=== PATIENT | female | born 1950 | race Caucasian/White ===

== ENCOUNTER 2017-12-06 20:26 | Observation (INO) | payer MEDICARE, SELFPAY ==
[2017-12-06 20:26] VITALS: BP 140/92; PULSE 139; RESP 29; TEMP 37.2; O2SAT 99; BMI 20.9
--- NOTE | 2017-12-06 20:36 | XR_ITS ---
XR chest portable HISTORY: ITS.REASON: chest pressure, arrythmia ORDERING PHYSICIAN: Newton Fernandes MD PATIENT AGE: 67 years COMPARISON: None available FINDINGS: The cardiomediastinal silhouette and pulmonary vascularity are within normal limits. Surgical clips are present over the left lower chest. Calcified nodes are present in the right hilum. No lobar consolidation or collapse. IMPRESSION: As above, no acute finding
[2017-12-06 20:56] LABS: Basophils % 0.1 % (0.1-2.0); Eosinophils # 0.1 K/mm3 (0.0-0.4); Eosinophils % 1.3 % (0.1-12.0); Hematocrit 35.7 % (37.0-47.0); Hemoglobin 12.7 g/dL (12.2-16.2); Lymphocytes # 1.9 K/mm3 (0.7-4.5); Lymphocytes % 21.1 K/mm3 (10-50); Mean Corpuscular HGB Conc 35.6 g/dL (31.8-35.4); Mean Corpuscular Hemoglobin 30.6 pg (27.0-31.2); Mean Corpuscular Volume 85.9 fl (81-99); Mean Platelet Volume 8.4 fl (7.4-10.4); Monocytes # 0.6 K/mm3 (0.1-1.0); Monocytes % 6.9 % (1.7-9.3); Neutrophils # 6.2 K/mm3 (1.8-7.8); Neutrophils % 70.5 % (37.0-80.0); Platelet Count 266 K/mm3 (142-424); Red Blood Count 4.16 M/mm3 (4.20-5.40); Red Cell Distribution Width 13.2 % (11.5-17.5); White Blood Count 8.7 K/mm3 (4.8-10.8)
[2017-12-06 21:15] VITALS: BP 121/79; PULSE 91; RESP 23; TEMP 36.7; O2SAT 99
[2017-12-06 21:16] LABS: Alanine Aminotransferase 25 U/L (12-78); Albumin Level 3.9 gm/dL (3.4-5.0); Albumin/Globulin Ratio 1.6 (1.1-1.8); Alkaline Phosphatase 59 U/L (46-116); Anion Gap 12.5 mEq/L (5-15); Aspartate Amino Transferase 9 U/L (15-37); Bilirubin,Total 0.5 mg/dL (0.2-1.0); Blood Urea Nitrogen 11 mg/dL (7-18); Calcium 8.9 mg/dL (8.5-10.1); Carbon Dioxide 27 mmol/L (21.0-32.0); Chloride 105 mmol/L (98-107); Creatine Kinase 55 U/L (26-192); Creatinine Clearance Estimated 50 mL/min (0-300); Creatinine,Serum 1.01 mg/dL (0.55-1.02); Estimated Glomerular Filt Rate 55 ml/min (>60); Free T4 (Free Thyroxine) 1.27 ng/dl (0.76-1.46); GFR (African American) 66 ML/MIN (>60); Globulin 2.5 gm/dl (1.3-3.2); Glucose 130 mg/dL (74-106); Potassium 3.5 mmoL/L (3.5-5.1); Sodium 141 mmol/L (136-145); Thyroid Stimulating Hormone 3.34 uIU/ml (0.358-3.740); Total Protein,Serum 6.4 gm/dL (6.4-8.2); Troponin I < 0.02 ng/ml (0.00-0.06)
[2017-12-06 21:18] LABS: Lactic Acid 2.1 mmol/L (0.4-2.0)
--- NOTE | 2017-12-06 21:18 | HMH.EDCP ---
ED Disposition Clinical Impression: Palpitation Chest pain Qualifiers: Chest pain type: precordial pain Qualified Code(s): R07.2 - Precordial pain Disposition: Admitted as Observation Condition on Discharge: Good Referrals: Newton Fernandes MD [Primary Care Provider] - - Critical Care Critical Care Time: No Attestation: On 12/06/17, the high probability of a clinically significant, sudden or life threatening deterioration of the following system(s) required my full and direct attention, intervention and personal management. The time I documented below is in addition to time spent performing reported procedures but includes the following listed in this critical care notation. Medical Decision Making - Medical Records Medical records reviewed: Yes: I reviewed the patient's medical records. Vital Signs: 12/06/17 20:26 12/06/17 21:15 Temperature 98.9 F 98.1 F Temperature Source Oral Oral Pulse Rate [Apical] 139 H 91 H Respiratory Rate 29 H 23 Blood Pressure [Right Arm] 140/92 121/79 Blood Pressure Mean [Right Arm] 108 93 Blood Pressure Source [Right Arm] Automatic Cuff Automatic Cuff Blood Pressure Position [Right Arm] Supine Sitting 02 Sat by Pulse Oximetry 99 99 Oxygen Delivery Method Nasal Cannula Nasal Cannula Oxygen Flow Rate (LPM) 3 3 - Lab Data Lab results reviewed: Yes: I reviewed the patient's lab results. Lab Results 12/06/17 20:46: WBC 8.7, RBC 4.16 L, Hgb 12.7, Hct 35.7 L, MCV 85.9, MCH 30.6, MCHC 35.6 H, RDW 13.2, Plt Count 266, MPV 8.4, Neut % (Auto) 70.5, Lymph % (Auto) 21.1, [place] % (Auto) 6.9, Eos % (Auto) 1.3, Baso % (Auto) 0.1, Neut # (Auto) 6.2, Lymph # (Auto) 1.9, [place] # (Auto) 0.6, Eos # (Auto) 0.1, Baso # (Auto) 0.0 12/06/17 20:46: Sodium 141, Potassium 3.5, Chloride 105, Carbon Dioxide 27, Anion Gap 12.5, BUN 11, Creatinine 1.01, Estimated Creat Clear 50, Estimated GFR 55 L, Est GFR ( Amer) 66, Glucose 130 H, Calcium 8.9, Total Bilirubin 0.5, AST 9 L, ALT 25, Alkaline Phosphatase 59, Total Creatine Kinase 55, CK-MB (CK-2) 0.8, CK-MB (CK-2) Rel Index 1.5, Troponin I < 0.02, Total Protein 6.4, Albumin 3.9, Globulin 2.5, Albumin/Globulin Ratio 1.6, TSH 3.34, Free T4 1.27 12/06/17 20:46: Lactic Acid 2.1 H 12/06/17 20:46: B-Natriuretic Peptide 31 12/06/17 21:20: Urine Color Yellow, Urine Appearance Clear, Urine pH 8.0, Ur Specific [place] 1.015, Urine Protein Negative, Urine Glucose (UA) Negative, Urine Ketones Negative, Urine Blood Negative, Urine Nitrate Negative, Urine Bilirubin Negative, Urine Urobilinogen 0.2, Ur Leukocyte Esterase Negative, Urine RBC None, Urine WBC Occasional, Ur Squamous Epith Cells Occasional, Urine Bacteria None Result diagrams: 12/06/17 20:46 12/06/17 20:46 Orders (Tests/Meds): ORDERS Category Date Time Status XR chest portable Stat Exams 12/06/17 20:36 Taken fingerstick glucose [POC Glucose,Bedside] Stat Lab 12/06/17 20:36 Ordered Blood Culture Stat Micro 12/06/17 20:54 Received ECG Request by /Bteh Stat Y 12/06/17 20:36 Ordered - Radiology Data #1 Image(s): Chest Image Reviewed: Yes I reviewed the patient's radiology image Preliminary Findings: Normal/NAD - ECG Data Tracing #1 I reviewed this ECG and interpreted as documented below: Arrhythmias present: sinus tach Ischemic changes: non-specific ST-T wave changes Tracing #2 I reviewed this ECG and interpreted as documented below: Normal Sinus Rhythm: Yes Ischemic changes: non-specific ST-T wave changes - Physician Consults Physician Consulted: usha Reason -: Admission - Doug Inquiry Pt receiving controlled substance: No Chest Pain HPI - General Chief Complaint: Chest Pain Stated Complaint: tachycardia Time Seen by Provider: 12/06/17 21:18 Mode of Arrival: EMS Source of Information: Patient, Spouse, EMS, Medical Record Limitations: No Limitations Description of Symptoms (Recalled from ER Triage Doc. by RN): been sick with a sinus infe
[2017-12-06 21:25] LABS: Microscopic, Urine URINE MICROSCOPIC (MICROSCOPIC)
[2017-12-06 21:27] LABS: Appearance,Urine CLEAR (Clear); Bilirubin,Urine Negative (Negative); Blood, Urine Negative (Negative); Color,Urine YELLOW (Yellow); Glucose,Urine (UA) Negative (Negative); Ketones,Urine Negative (Negative); Leukocyte Esterase,Urine Negative (Negative); Nitrate,Urine Negative (Negative); Protein,Urine Negative (Negative); Specific Gravity, Urine 1.015 (1.005-1.030); Urobilinogen,Urine 0.2 EU/dl (0.2)
--- NOTE | 2017-12-06 21:29 | ED_ITS ---
ED Disposition Clinical Impression: Palpitation Chest pain Qualifiers: Chest pain type: precordial pain Qualified Code(s): R07.2 - Precordial pain Disposition: Admitted as Observation Condition on Discharge: Good Referrals: Newton Fernandes MD [Primary Care Provider] - - Critical Care Critical Care Time: No Attestation: On 12/06/17, the high probability of a clinically significant, sudden or life threatening deterioration of the following system(s) required my full and direct attention, intervention and personal management. The time I documented below is in addition to time spent performing reported procedures but includes the following listed in this critical care notation. Medical Decision Making - Medical Records Medical records reviewed: Yes: I reviewed the patient's medical records. Vital Signs: 12/06/17 20:26 12/06/17 21:15 Temperature 98.9 F 98.1 F Temperature Source Oral Oral Pulse Rate [Apical] 139 H 91 H Respiratory Rate 29 H 23 Blood Pressure [Right Arm] 140/92 121/79 Blood Pressure Mean [Right Arm] 108 93 Blood Pressure Source [Right Arm] Automatic Cuff Automatic Cuff Blood Pressure Position [Right Arm] Supine Sitting 02 Sat by Pulse Oximetry 99 99 Oxygen Delivery Method Nasal Cannula Nasal Cannula Oxygen Flow Rate (LPM) 3 3 - Lab Data Lab results reviewed: Yes: I reviewed the patient's lab results. Lab Results 12/06/17 20:46: WBC 8.7, RBC 4.16 L, Hgb 12.7, Hct 35.7 L, MCV 85.9, MCH 30.6, MCHC 35.6 H, RDW 13.2, Plt Count 266, MPV 8.4, Neut % (Auto) 70.5, Lymph % (Auto ) 21.1, [place] % (Auto) 6.9, Eos % (Auto) 1.3, Baso % (Auto) 0.1, Neut # (Auto) 6.2, Lymph # (Auto) 1.9, [place] # (Auto) 0.6, Eos # (Auto) 0.1, Baso # (Auto) 0.0 12/06/17 20:46: Sodium 141, Potassium 3.5, Chloride 105, Carbon Dioxide 27, Anion Gap 12.5, BUN 11, Creatinine 1.01, Estimated Creat Clear 50, Estimated GFR 55 L, Est GFR ( Amer) 66, Glucose 130 H, Calcium 8.9, Total Bilirubin 0.5, AST 9 L, ALT 25, Alkaline Phosphatase 59, Total Creatine Kinase 55, CK-MB (CK-2) 0.8, CK-MB (CK-2) Rel Index 1.5, Troponin I < 0.02, Total Protein 6.4, Albumin 3.9, Globulin 2.5, Albumin/Globulin Ratio 1.6, TSH 3.34, Free T4 1.27 12/06/17 20:46: Lactic Acid 2.1 H 12/06/17 20:46: B-Natriuretic Peptide 31 12/06/17 21:20: Urine Color Yellow, Urine Appearance Clear, Urine pH 8.0, Ur Specific [place] 1.015, Urine Protein Negative, Urine Glucose (UA) Negative, Urine Ketones Negative, Urine Blood Negative, Urine Nitrate Negative, Urine Bilirubin Negative, Urine Urobilinogen 0.2, Ur Leukocyte Esterase Negative, Urine RBC None, Urine WBC Occasional, Ur Squamous Epith Cells Occasional, Urine Bacteria None Result diagrams: 12/06/17 20:46 12/06/17 20:46 Orders (Tests/Meds): ORDERS Category Date Time Status XR chest portable Stat Exams 12/06/17 20:36 Taken fingerstick glucose [POC Glucose,Bedside] Stat Lab 12/06/17 20:36 Ordered Blood Culture Stat Micro 12/06/17 20:54 Received ECG Request by /Beth Stat Y 12/06/17 20:36 Ordered - Radiology Data #1 Image(s): Chest Image Reviewed: Yes I reviewed the patient's radiology image Preliminary Findings: Normal/NAD - ECG Data Tracing #1 I reviewed this ECG and interpreted as documented below: Arrhythmias present: sinus tach Ischemic changes: non-specific ST-T wave changes Tracing #2 I reviewed this ECG and interpreted as documented be
[2017-12-06 21:48] LABS: Squamous Epithelial Cell,Urine Occasional #/hpf (0-5); WBC,Urine Occasional #/hpf (0-3)
[2017-12-06 21:50] LABS: CKMB Relative Index 1.5 U/L (0-4.0); Creatine Kinase MB 0.8 mg/ml (0.0-3.6)
[2017-12-06 22:11] VITALS: BP 144/87; PULSE 86; RESP 18; TEMP 37.1; O2SAT 100
--- NOTE | 2017-12-06 22:11 | PC.NURSE ---
Dr Osorio spoke to Dr Fernandes regarding admission. Dr Fernandes agreed to admit.
[2017-12-06 22:26] VITALS: BP 151/93; PULSE 87; RESP 18; TEMP 36.9; O2SAT 100
[2017-12-06 22:45] VITALS: BMI 20.8
[2017-12-06 23:31] VITALS: O2SAT 97
[2017-12-07 00:54] LABS: Reflex Lactic Add Lactic Reflex
--- NOTE | 2017-12-07 00:57 | PC.NURSE ---
PT ASLEEP, STABLE. NO C/O CHEST PAIN AT THIS TIME. REPORT TO ONCOMING NURSE.
[2017-12-07 01:21] LABS: Lactic Acid Follow Up (RFLX 1) 0.8 (0.4-2.0)
[2017-12-07 03:54] VITALS: BP 152/82; PULSE 96; RESP 20; TEMP 36.8; O2SAT 100
[2017-12-07 04:00] VITALS: PULSE 90
--- NOTE | 2017-12-07 05:01 | PC.NURSE ---
AT 0403 DR. MUSA PAGED. AT [phone] MD RESPONDED TO PAGE. MD NOTIFIED OF C/O SOA PT STATING I JUST FEEL LIKE IT IS HARD TO CATCH MY BREATH. AND CHEST TIGHTNESS. PT ALSO REPORTS I FEEL LIKE I AM ABOUT TO HAVE ANOTHER PANIC ATTACK. COMPLAINT WAS MADE AT AT 0353 TO RN. VITAL SIGNS OBTAINED AND RECORDED AT 0354 BP: 152/82, HR: 96, RR: 20, TEMP: 98.2, O2SAT: 100% ON 2LNC. NSR NOTED PER SUPERVISOR REINFORCED STEEL PLACING AT THIS TIME. VERIFIED AND REPEATED ORDERS WITH DR. MUSA: 0.5MG ATIVAN IV ONE TIME ONLY.
--- NOTE | 2017-12-07 06:18 | PC.NURSE ---
PAGED DR. MUSA AT [phone]. RESPONDED TO PAGE AT [phone]. MD NOTIFIED OF PT FEELS A SLIGHT BETTER BUT NOT ENOUGH TO REST COMFORTABLY. STILL HAS MILD CHEST TIGHTNESS, AND FEELING A LITTLE SOA. NSR/SINUS TACH (HR OF 100-113) ON SIPHON OPERATOR. VERIFIED AND REPEATED ORDER WITH DR. MUSA: ONE TIME DOSE OF 0.5MG IV ATIVAN.
--- NOTE | 2017-12-07 06:30 | PC.NURSE ---
ON REASSESSMENT OF ATIVAN, PT STATES I FEEL SO MUCH BETTER. IT DID HELP. THANK YOU.
--- NOTE | 2017-12-07 06:52 | CA_ITS ---
PROCEDURE: 2-D M-mode and color Doppler study INDICATIONS FOR THE TEST: Chest pain X COPD Heart Murmur Tobacco Smoking Palpitations Fatigue Syncope Edema Hypertension Diabetes Mellitus Rheumatic Fever SOBXDOE Obesity Hyperlipidemia Family History HD Additional History PATIENT INFORMATION HEIGHT: 65 WEIGHT:129 GENDER: Female B/P:121/79 2-D/M-MODE INTERPRETATION: 2-D MEASUREMENTS OBSERVED VALUES IN CMS Right Ventricular Dimension (RVDd) 1.8 Interventricular Septum (Thickness)(IVsd) .6 Left Ventricular Internal Dimensions(LVIDd) 5.6 Left Ventricular Posterior Wall (Thickness)(LVPWd) .9 Aortic Root 2.9 Aortic Cusp Separation 2.0 Left Atrial Dimensions (LAD) 2.5 2D 1. Left atrium is normal size, left ventricle is normal size, there is no concentric left ventricular hypertrophy, visually estimated ejection fraction 55% with no obvious regional wall motion abnormality. 2. The right atrium and right ventricle are normal size and contractility. 3. The aortic valve is minimally thickened and fibrosed. 4. The mitral and tricuspid valve are grossly normal. 5. The pulmonic valve is poorly visualized. 6. No significant pericardial effusion noted. DOPPLER INTERROGATION: Doppler interrogation of the aortic, mitral and tricuspid valvular presence of mild mitral and tricuspid regurgitation, tricuspid and jet velocity is insufficient for calculation of the right ventricular systolic pressure, diastolic parameters are inconclusive. CONCLUSION: 1. Normal left ventricular size, preserved left ventricular systolic function, visually estimated ejection fraction 55% with no obvious regional wall motion abnormality. Diastolic parameters are inconclusive. 2. Mild mitral and tricuspid regurgitation 3. No significant pericardial effusion noted.
[2017-12-07 07:05] LABS: Anion Gap 9.3 mEq/L (5-15); Blood Urea Nitrogen 10 mg/dL (7-18); Carbon Dioxide 30 mmol/L (21.0-32.0); Chloride 107 mmol/L (98-107); Chol/HDL Ratio 3.1 (1-3.5); Cholesterol 196 mg/dL (140-200); Creatinine Clearance Estimated 50 mL/min (0-300); Estimated Glomerular Filt Rate 83 ml/min (>60); GFR (African American) 101 ML/MIN (>60); Glucose 97 mg/dL (74-106); HDL Cholesterol 64 mg/dL (29-89); LDL Cholesterol 110 mg/dL (0-130); Potassium 3.3 mmoL/L (3.5-5.1); Sodium 143 mmol/L (136-145); Triglycerides 110 mg/dL (30-200); VLDL Cholesterol 22 mg/dL (0-40)
[2017-12-07 07:07] LABS: Troponin I < 0.02 ng/ml (0.00-0.06)
[2017-12-07 07:46] VITALS: BP 148/94; PULSE 107; RESP 20; TEMP 36.8; O2SAT 97
--- NOTE | 2017-12-07 07:48 | HMH.PHAVTE ---
[facility] Pharmacy VTE Monitoring - Patient Demographics Allergies/Adverse Reactions: Patient Allergies No Known Allergies Allergy (Verified 12/07/17 04:12) Height: 1.68 m Weight: 58.542 kg Patient Problems: Current Active Problems Chest pain (Acute) Palpitation (Acute) - VTE Risk Labs: VTE Related Lab Results Hgb 12.7 g/dL (12.2-16.2) 12/06/17 20:46 Hct 35.7 % (37.0-47.0) L 12/06/17 20:46 Plt Count 266 K/mm3 (142-424) 12/06/17 20:46 BUN 10 mg/dL (7-18) 12/07/17 06:15 Creatinine 0.70 mg/dL (0.55-1.02) D 12/07/17 06:15 Estimated Creat Clear 50 mL/min (0-300) 12/07/17 06:15 Was VTE Risk Assessment Performed: Yes VTE Score: 1 VTE Risk Level: Very Low Risk - Prophylaxis Types of VTE Prophylaxis: TEDS Knee High
[2017-12-07 08:00] VITALS: PULSE 110
--- NOTE | 2017-12-07 08:27 | HMH.CNCARD ---
History of Present Illness Consult date: 12/07/17 Requesting physician: Newton Fernandes Consult reason: shortness of breath Chief complaint: Shortness of breath Additional Medical History:: 1. Family history of early heart disease in her mother who of a heart attack at age 59 2. History of depression 3. History of reflux History of present illness: 67-year-old white female with recent upper respiratory infection for a couple of weeks with [id number] treatment including Addie-D and Xanax presented with increasing shortness of breath. Patient was brought in by ambulance after stopping at the size maker station yesterday and reportedly having a rapid irregular heartbeat. Review of the rhythm strips from the EMS show motion artifact but with a appreciable sinus tachycardia at about 130-150 bpm. EKGs here in the hospital continued to show sinus tachycardia with motion artifact for which the machine has read atrial fibrillation. Patient was given 3 sublingual nitroglycerin in the ambulance without relief of symptoms. She given aspirin in the emergency department with gradual resolution of symptoms. Patient denies any chest pain overnight. He denies any previous cardiac history, she denies a history of hypertension, hyperlipidemia, diabetes mellitus or tobacco use. Cardiology consulted for further evaluation. [facility] History Medical History: Denies:: Cancer, Diabetes Mellitus Type 1, Diabetes Mellitus Type 2, MRSA Laterality Cases: Right: Other, Bilateral: Tonsillectomy Other Surgeries: Yes: Hysterectomy-Total Amputation: No Fractures: Yes (right arm/wrist) - *Social History Educational Level: Completed High School Smoking Status: Never smoker Alcohol Intake: never Occupational Status: retired Housing: house Household Members: significant other - Psychiatric History Expresses thoughts of harming self/others: None Suicide Plan Description: No Plan Meds Home Medications Medication Instructions Recorded Confirmed Type Venlafaxine HCl [Effexor XR 75mg 225 mg PO DAILY 12/06/17 12/06/17 History capsule] Ziprasidone HCl [Ziprasidone HCl] 60 mg PO HS 12/06/17 12/06/17 History Zolpidem Tartrate [Ambien 5mg 5 mg PO HS 12/06/17 12/06/17 History tablet] Omeprazole [Omeprazole 40mg 40 mg PO DAILY 12/07/17 12/07/17 History Capsule] Allergies Allergy/AdvReac Type Severity Reaction Status Date / Time No Known Allergies Allergy Verified 12/07/17 04:12 Review of Systems - *Cardiovascular Reports chest pain, Reports shortness of breath - *Respiratory Reports shortness of breath - *Gastrointestinal Denies abdominal pain, Denies vomiting - *Genitourinary Denies blood in urine - *Musculoskeletal Denies joint pain - *Neurologic Denies seizure-like activity Exam Vital signs and Labs for Last 24 Hours: Temp Pulse Resp BP Pulse Ox 98.2 F 107 H 20 148/94 97 12/07/17 07:46 12/07/17 07:46 12/07/17 07:46 12/07/17 07:46 12/07/17 07:46 Laboratory Results - last 24 hr 12/07/17 00:50: Lactic Acid Fup @ 4Hr 0.8 12/07/17 06:15: Troponin I < 0.02 12/07/17 06:15: Sodium 143, Potassium 3.3 L, Chloride 107, Carbon Dioxide 30, Anion Gap 9.3, BUN 10, Creatinine 0.70 D, Estimated Creat Clear 50, Estimated GFR 83, Est GFR ( Amer) 101 D, Glucose 97 D, Triglycerides 110, Cholesterol 196, LDL Cholesterol 110, VLDL Cholesterol 22, HDL Cholesterol 64, Cholesterol/HDL Ratio 3.1 I & O for Last 24 hours: Intake & Output 12/04/17 12/05/17 12/06/17 12/07/17 11:59 11:59 11:59 11:59 Intake Total 213 / 713 Balance 213 / 713 Weight 129 lb 1 oz - *Routine Neck Exam Present: supple. Absent: JVD, carotid bruit - *Routine Respiratory Exam Present: CTA bilaterally. Absent: rhonchi, wheezes - *Routine Cardiovascular Exam Present: RRR. Absent: murmur, gallop, rubs - *Routine Extremities Exam Absent: edema, calf tenderness - *Routine Neurologica
--- NOTE | 2017-12-07 08:35 | HMH.HPDC ---
<Marie Adams - Last Filed: 12/07/17 17:30> General - General Admission date: 12/06/17 Discharge date: 12/07/17 *Admission Date: 12/06/17 *Chief complaint: shortness of breath and palpitations *History of present illness: Ms Grant is a 67 year old female with a history of anxiety/depression, and recent treatment for a sinus infection who presented to [facility] ER via EMS after experiencing palpitations, shortness of breath, and anxiety. She states also that her chest felt full. She denies cough, fever, nausea and vomiting. She states she was diaphoretic. She tried to cut herself down but was unable to do so. Thus she called EMS. EMS did have to stop at their station due to her shortness of breath. She was given 3 nitroglycerin without change of her symptoms. Monitor at that time showed a sinus tach with artifact. Upon arrival to the emergency room she was given an aspirin. Her symptoms gradually improved. Monitor at that time also showed sinus tach. She was admitted for further evaluation and treatment and a cardiology consult. Patient states that she did not sleep all night. The Ativan to help her and she was to relax more. States she has been taking Jesse D twice daily for the past month as well as Nasonex. She started taking Mucinex D or DM. She has been having shoulder and neck discomfort for which she saw a chiropractor yesterday. The treatment did not help. [facility] History Medical History: Reports:: Cancer Denies:: Atrial Fibrillation, Chronic Obstructive Pulmonary Disease (COPD), Diabetes Mellitus Type 1, Diabetes Mellitus Type 2, MRSA, Seizures Other Medical History: Denies: Arthritis, Hypothyroidism Comment: overactive bladder; depression; anxiety; GERD. Fibromyalgia; insomnia Laterality Cases: Left: Lumpectomy (for cancer), Right: Other, Bilateral: Tonsillectomy Other Surgeries: Yes: Hysterectomy-Total Amputation: No Fractures: Yes (right arm/wrist) Comment: ORIF of left ankle after Fx - *Social History Educational Level: Completed High School Smoking Status: Never smoker Alcohol Intake: never Occupational Status: retired Housing: house Household Members: significant other - Psychiatric History Expresses thoughts of harming self/others: None Suicide Plan Description: No Plan Pschychiatric History:: Reports:: Anxiety, Depression *Family Hx:: Heart Attack Review of Systems - Constitutional Reports body ache(s), Reports excessive sweating, Reports fever(s), Denies chills, Denies headache(s) - ENT Reports sinus pressure, Denies ear pain, Denies headache(s), Denies sore throat - *Cardiovascular Reports chest pain, Reports shortness of breath, Reports rapid, pounding, or irregular heartbeat, Reports fast heart rate, Denies generalized swelling, Denies foot swelling - *Respiratory Reports shortness of breath, Denies cough - *Gastrointestinal Denies abdominal pain, Denies bloating, Denies constipation, Denies heartburn, Denies vomiting blood, Denies black, tarry stools, Denies nausea, Denies vomiting - *Genitourinary Comments: Voids too much - *Musculoskeletal Reports joint pain (Neck and shoulders) - *Neurologic Denies behavioral changes, Denies confusion, Denies dizziness, Denies headache(s), Denies seizure-like activity - Psychiatric Reports anxiety, Reports depression, Reports panic attacks, Denies confusion Exam Vital signs and Labs for Last 24 Hours: Temp Pulse Resp BP Pulse Ox 98.2 F 107 H 20 148/94 97 12/07/17 07:46 12/07/17 07:46 12/07/17 07:46 12/07/17 07:46 12/07/17 07:46 Laboratory Results - last 24 hr 12/07/17 00:50: Lactic Acid Fup @ 4Hr 0.8 12/07/17 06:15: Troponin I < 0.02 12/07/17 06:15: Sodium 143, Potassium 3.3 L, Chloride 107, Carbon Dioxide 30, Anion Gap 9.3, BUN 10, Creatinine 0.70 D, Estimated Creat Clear 50, Estimated GFR 83, Est GFR ( Amer) 101 D, Glucose 97 D, Triglycerides 110, Cholesterol 196, LDL Cholesterol 110, VLDL Cholesterol 22, HDL
--- NOTE | 2017-12-07 08:43 | P.HPDS_ITS ---
<Marie Adams - Last Filed: 12/07/17 17:30> General - General Admission date: 12/06/17 Discharge date: 12/07/17 *Admission Date: 12/06/17 *Chief complaint: shortness of breath and palpitations *History of present illness: Ms Grant is a 67 year old female with a history of anxiety/depression, and recent treatment for a sinus infection who presented to [facility] ER via EMS after experiencing palpitations, shortness of breath, and anxiety. She states also that her chest felt full. She denies cough, fever, nausea and vomiting. She states she was diaphoretic. She tried to cut herself down but was unable to do so. Thus she called EMS. EMS did have to stop at their station due to her shortness of breath. She was given 3 nitroglycerin without change of her symptoms. Monitor at that time showed a sinus tach with artifact. Upon arrival to the emergency room she was given an aspirin. Her symptoms gradually improved. Monitor at that time also showed sinus tach. She was admitted for further evaluation and treatment and a cardiology consult. Patient states that she did not sleep all night. The Ativan to help her and she was to relax more. States she has been taking Jesse D twice daily for the past month as well as Nasonex. She started taking Mucinex D or DM. She has been having shoulder and neck discomfort for which she saw a chiropractor yesterday. The treatment did not help. [facility] History Medical History: Reports:: Cancer Denies:: Atrial Fibrillation, Chronic Obstructive Pulmonary Disease (COPD), Diabetes Mellitus Type 1, Diabetes Mellitus Type 2, MRSA, Seizures Other Medical History: Denies: Arthritis, Hypothyroidism Comment: overactive bladder; depression; anxiety; GERD. Fibromyalgia; insomnia Laterality Cases: Left: Lumpectomy (for cancer), Right: Other, Bilateral: Tonsillectomy Other Surgeries: Yes: Hysterectomy-Total Amputation: No Fractures: Yes (right arm/wrist) Comment: ORIF of left ankle after Fx - *Social History Educational Level: Completed High School Smoking Status: Never smoker Alcohol Intake: never Occupational Status: retired Housing: house Household Members: significant other - Psychiatric History Expresses thoughts of harming self/others: None Suicide Plan Description: No Plan Pschychiatric History:: Reports:: Anxiety, Depression *Family Hx:: Heart Attack Review of Systems - Constitutional Reports body ache(s), Reports excessive sweating, Reports fever(s), Denies chills, Denies headache(s) - ENT Reports sinus pressure, Denies ear pain, Denies headache(s), Denies sore throat - *Cardiovascular Reports chest pain, Reports shortness of breath, Reports rapid, pounding, or irregular heartbeat, Reports fast heart rate, Denies generalized swelling, Denies foot swelling - *Respiratory Reports shortness of breath, Denies cough - *Gastrointestinal Denies abdominal pain, Denies bloating, Denies constipation, Denies heartburn, Denies vomiting blood, Denies black, tarry stools, Denies nausea, Denies vomiting - *Genitourinary Comments: Voids too much - *Musculoskeletal Reports joint pain (Neck and shoulders) - *Neurologic Denies behavioral changes, Denies confusion, Denies dizziness, Denies headache(s ), Denies seizure-like activity - Psychiatric Reports anxiety, Reports depression, Reports panic attacks, Denies confusion Exam Vital signs and Labs for Last 24 Hours: Temp Pulse Resp BP Pulse Ox 98.2 F 107 H 20 148/94 97 12/07/17 07:46 12/07/17 07:46 12/07/17 07:46 12/07/17 07:
--- NOTE | 2017-12-07 12:38 | P.DS_ITS ---
General - General Admission date: 12/06/17 HPI HPI: Ms Grant is a 67 year old female with a history of anxiety/depression, and recent treatment for a sinus infection who presented to [facility] ER via EMS after experiencing palpitations, shortness of breath, and anxiety. She states also that her chest felt full. She denies cough, fever, nausea and vomiting. She states she was diaphoretic. She tried to cut herself down but was unable to do so. Thus she called EMS. EMS did have to stop at their station due to her shortness of breath. She was given 3 nitroglycerin without change of her symptoms. Monitor at that time showed a sinus tach with artifact. Upon arrival to the emergency room she was given an aspirin. Her symptoms gradually improved. Monitor at that time also showed sinus tach. She was admitted for further evaluation and treatment and a cardiology consult. Patient states that she did not sleep all night. The Ativan to help her and she was to relax more. States she has been taking Jesse D twice daily for the past month as well as Nasonex. She started taking Mucinex D or DM. She has been having shoulder and neck discomfort for which she saw a chiropractor yesterday. The treatment did not help. Objective Vital signs: Temp Pulse Resp BP Pulse Ox 98.2 F 110 H 20 148/94 97 12/07/17 07:46 12/07/17 08:00 12/07/17 07:46 12/07/17 07:46 12/07/17 07:46 Results Labs on day of discharge: Labs from last 24 hours 12/07/17 12/07/17 12/07/17 06:15 06:15 00:50 Sodium 143 Potassium 3.3 L Chloride 107 Carbon Dioxide 30 Anion Gap 9.3 BUN 10 Creatinine 0.70 D Estimated Creat Clear 50 Estimated GFR 83 Est GFR ( Amer) 101 D Glucose 97 D Lactic Acid Fup @ 4Hr 0.8 Troponin I < 0.02 Triglycerides 110 Cholesterol 196 LDL Cholesterol 110 VLDL Cholesterol 22 HDL Cholesterol 64 Cholesterol/HDL Ratio 3.1 Discharge Plan - Patient Discharge Instructions ACTIVITY: Continue current activity DIET: continue same diet - Follow up Plan Follow up with: Newton Fernandes MD [Primary Care Provider] - 12/09/17 Unknown provider or service follow up:: Dr. Dinh in 2 weeks Disposition: Home, Self-Group Home Medications: Home Medications Medication Instructions Recorded Confirmed Type Venlafaxine HCl [Effexor XR 75mg 225 mg PO DAILY 12/06/17 12/06/17 History capsule] Ziprasidone HCl [Ziprasidone HCl] 60 mg PO HS 12/06/17 12/06/17 History Zolpidem Tartrate [Ambien 5mg 5 mg PO HS 12/06/17 12/06/17 History tablet] Omeprazole [Omeprazole 40mg 40 mg PO DAILY 12/07/17 12/07/17 History Capsule] Prescriptions/Medication Reconciliation: New Nebivolol HCl [Bystolic] 5 mg PO DAILY #30 tab LORazepam [Ativan 0.5mg tablet] 0.5 mg PO TIDP PRN #24 tab PRN Reason: Anxiety Continue Zolpidem Tartrate [Ambien 5mg tablet] 5 mg PO HS Venlafaxine HCl [Effexor XR 75mg capsule] 225 mg PO DAILY Ziprasidone HCl [Ziprasidone HCl] 60 mg PO HS Omeprazole [Omeprazole 40mg Capsule] 40 mg PO DAILY
--- NOTE | 2017-12-30 09:48 | P.CONS_ITS ---
History of Present Illness Consult date: 12/07/17 Requesting physician: Newton Fernandes Consult reason: shortness of breath Chief complaint: Shortness of breath Additional Medical History:: 1. Family history of early heart disease in her mother who of a heart attack at age 59 2. History of depression 3. History of reflux History of present illness: 67-year-old white female with recent upper respiratory infection for a couple of weeks with [id number] treatment including Addie-D and Xanax presented with increasing shortness of breath. Patient was brought in by ambulance after stopping at the club manager station yesterday and reportedly having a rapid irregular heartbeat. Review of the rhythm strips from the EMS show motion artifact but with a appreciable sinus tachycardia at about 130-150 bpm. EKGs here in the hospital continued to show sinus tachycardia with motion artifact for which the machine has read atrial fibrillation. Patient was given 3 sublingual nitroglycerin in the ambulance without relief of symptoms. She given aspirin in the emergency department with gradual resolution of symptoms. Patient denies any chest pain overnight. He denies any previous cardiac history , she denies a history of hypertension, hyperlipidemia, diabetes mellitus or tobacco use. Cardiology consulted for further evaluation. [facility] History Medical History: Denies:: Cancer, Diabetes Mellitus Type 1, Diabetes Mellitus Type 2, MRSA Laterality Cases: Right: Other, Bilateral: Tonsillectomy Other Surgeries: Yes: Hysterectomy-Total Amputation: No Fractures: Yes (right arm/wrist) - *Social History Educational Level: Completed High School Smoking Status: Never smoker Alcohol Intake: never Occupational Status: retired Housing: house Household Members: significant other - Psychiatric History Expresses thoughts of harming self/others: None Suicide Plan Description: No Plan Meds Home Medications Medication Instructions Recorded Confirmed Type Venlafaxine HCl [Effexor XR 75mg 225 mg PO DAILY 12/06/17 12/06/17 History capsule] Ziprasidone HCl [Ziprasidone HCl] 60 mg PO HS 12/06/17 12/06/17 History Zolpidem Tartrate [Ambien 5mg 5 mg PO HS 12/06/17 12/06/17 History tablet] Omeprazole [Omeprazole 40mg 40 mg PO DAILY 12/07/17 12/07/17 History Capsule] Allergies Allergy/AdvReac Type Severity Reaction Status Date / Time No Known Allergies Allergy Verified 12/07/17 04:12 Review of Systems - *Cardiovascular Reports chest pain, Reports shortness of breath - *Respiratory Reports shortness of breath - *Gastrointestinal Denies abdominal pain, Denies vomiting - *Genitourinary Denies blood in urine - *Musculoskeletal Denies joint pain - *Neurologic Denies seizure-like activity Exam Vital signs and Labs for Last 24 Hours: Temp Pulse Resp BP Pulse Ox 98.2 F 107 H 20 148/94 97 12/07/17 07:46 12/07/17 07:46 12/07/17 07:46 12/07/17 07:46 12/07/17 07:46 Laboratory Results - last 24 hr 12/07/17 00:50: Lactic Acid Fup @ 4Hr 0.8 12/07/17 06:15: Troponin I < 0.02 12/07/17 06:15: Sodium 143, Potassium 3.3 L, Chloride 107, Carbon Dioxide 30, Anion Gap 9.3, BUN 10, Creatinine 0.70 D, Estimated Creat Clear 50, Estimated GFR 83, Est GFR ( Amer) 101 D, Glucose 97 D, Triglycerides 110, Cholesterol 196, LDL Cholesterol 110, VLDL Cholesterol 22, HDL Cholesterol 64, Cho
== END 2017-12-07 12:50 | disposition home or self-care (01) ==
LOC: ER 20:36 → 2ND 22:11
PROVIDERS: Admitting Provider Family Medicine; Emergency Provider Emergency Medicine; Family Provider Family Medicine; PCP Family Medicine; Visit Provider Family Medicine
DX: R07.9 Chest pain, unspecified (principal); R06.02 Shortness of breath; R00.2 Palpitations; J32.9 Chronic sinusitis, unspecified; F32.9 Major depressive disorder, single episode, unspecified; F41.9 Anxiety disorder, unspecified
CPT/HCPCS: 36415; 71045; 80048; 80053; 80061; 81001; 82550; 82553; 83605; 83880; 84439; 84443; 84484; 85025; 87040; 93005; 93041; 93306; 96365; 99285; G0378

== ENCOUNTER → 2018-01-11 09:41 | Outpatient (CLI) | payer MEDICARE, SELFPAY ==
--- NOTE | 2018-01-11 09:48 | XR_ITS ---
XR DEXA axial skeleton HISTORY: ITS.REASON: POST MENOPAUSAL ORDERING PHYSICIAN: Newton Fernandes MD PATIENT AGE: 67 years COMPARISON: None FINDINGS: The BMD measured at the Right femoral neck is 0.667 g/cm squared with a T score of -2.7 . This is considered Osteoporotic according to the World Health Organization criteria. Fracture risk is high. Treatment is advised. IMPRESSION: Osteoporosis with high fracture risk. Pharmacological treatment suggested. Recommend follow-up exam December 2018
== END ==
PROVIDERS: Family Provider Family Medicine; PCP Family Medicine; Visit Provider Family Medicine
DX: Z78.0 Asymptomatic menopausal state (principal)
CPT/HCPCS: 77080

== ENCOUNTER → 2018-10-12 09:09 | Outpatient (CLI) | payer MEDICARE, SELFPAY ==
--- NOTE | 2018-10-12 09:14 | CI_ITS ---
Cerebrovascular Exam Indications: 780.2 Syncope and collapse. IMPRESSIONS 1. The bilateral vertebral arteries are patent with normal antegrade flow. 2. Study suggests less than 20% stenosis involving the right internal carotid artery and the left internal carotid artery. 3. Tortuous carotid arteries seen left ICA Carotid duplex study. Complete study and Doppler flow study including spectral analysis, color and christina scale imaging. Location: Vascular laboratory. Patient status: Outpatient. Tables: Arterial flow: + +--------+--------+ Location V sys V ed + +--------+--------+ Right CCA - proximal 58.1cm/s 18.1cm/s + +--------+--------+ Right CCA - distal 52.6cm/s 17.3cm/s + +--------+--------+ Right ECA 84.1cm/s -------- + +--------+--------+ Right ICA - proximal 50.3cm/s 19.6cm/s + +--------+--------+ Right ICA - mid 58.1cm/s 23.6cm/s + +--------+--------+ Right ICA - distal 89.6cm/s 36.9cm/s + +--------+--------+ Right vertebral 72.3cm/s -------- + +--------+--------+ Left CCA - proximal 59.7cm/s 16.5cm/s + +--------+--------+ Left CCA - distal 57.4cm/s 18.1cm/s + +--------+--------+ Left ECA 69.1cm/s -------- + +--------+--------+ Left ICA - proximal 45.6cm/s 17.3cm/s + +--------+--------+ Left ICA - mid 43.2cm/s 14.9cm/s + +--------+--------+ Left ICA - distal 68.5cm/s 23.2cm/s + +--------+--------+ Left vertebral 26.7cm/s -------- + +--------+--------+ Velocity ratios: + + + + + + Right, V sys Right, V ed Left, V sys Left, V ed + + + + + + Max ICA/dist CCA 1.7 2.13 1.19 1.28 + + + + + + (Report amended ) Electronically signed by: Juma Marcano [id number]
== END ==
PROVIDERS: PCP Family Medicine; Visit Provider Family Medicine
DX: R55 Syncope and collapse (principal)
CPT/HCPCS: 93225; 93226; 93880

== ENCOUNTER → 2019-01-06 09:37 | Outpatient (CLI) | payer MEDICARE, SELFPAY ==
--- NOTE | 2019-01-06 09:45 | XR_ITS ---
XR DEXA axial skeleton HISTORY: ITS.REASON: POSTMENOPAUSAL ORDERING PHYSICIAN: Newton Fernandes MD PATIENT AGE: 68 years COMPARISON: 01/11/2018 FINDINGS: The BMD measured at the Right femoral neck is 0.711 g/cm squared with a T score of -2.3. This is considered Osteopenic according to the World Health Organization criteria. Fracture risk is Moderate. Treatment is advised. L1 L4 density has a T score of -0.9 and has decreased 2%. The mean hip density has increased by 2.9%. IMPRESSION: Osteopenia with moderate fracture risk. Suggest treatment and follow-up exam in December 2020
== END ==
PROVIDERS: PCP Family Medicine; Visit Provider Family Medicine
DX: M81.0 Age-related osteoporosis without current pathological fracture (principal); N95.1 Menopausal and female climacteric states
CPT/HCPCS: 77080

== ENCOUNTER → 2020-08-23 12:29 | Outpatient (CLI) | payer MEDICARE, SELFPAY ==
[2020-08-27 23:19] LABS: HBV IU/mL HBV DNA not detected IU/mL (.)
== END ==
PROVIDERS: Visit Provider Family Medicine
DX: B19.10 Unspecified viral hepatitis B without hepatic coma (principal)
CPT/HCPCS: 36415; 87517

== ENCOUNTER → 2021-07-31 11:21 | Outpatient (CLI) | payer MEDICARE, SELFPAY ==
--- NOTE | 2021-07-31 11:44 | XR_ITS ---
PROCEDURE: XR CHEST PORTABLE CLINICAL HISTORY: COVID OUTPATIENT COMPARISON: CT CT ABD/PEL W/O from 09/09/2015 CR [id number] XR chest portable from 12/06/2017 FINDINGS: The cardiomediastinal silhouette and pulmonary vascularity are within normal limits. The lungs are clear without infiltrates, suspicious nodules, or pleural effusions. Clips project over the left breast and left lower lobe. No acute bony findings. IMPRESSION: No acute findings. Dictated by: Horacio Chadwick MD 07/31/2021 12:08 Horacio Chadwick MD in OV 07/31/2021 12:08
[2021-07-31 12:07] LABS: Basophils # 0.1 K/mm3 (0-0.2); Basophils % 0.8 % (0.1-2.0); Eosinophils # 0.1 K/mm3 (0.0-0.4); Eosinophils % 1.4 % (0.1-12.0); Hematocrit 43.2 % (37.0-47.0); Lymphocytes # 1.6 K/mm3 (0.7-4.5); Lymphocytes % 16.3 % (10-50); Mean Corpuscular HGB Conc 32.3 g/dL (31.8-35.4); Mean Corpuscular Hemoglobin 29.9 pg (27.0-31.2); Mean Corpuscular Volume 92.7 fl (81-99); Mean Platelet Volume 8.5 fl (7.4-10.4); Monocytes # 0.6 K/mm3 (0.1-1.0); Monocytes % 6.3 % (1.7-9.3); Neutrophils # 7.1 K/mm3 (1.8-7.8); Neutrophils % 75.2 % (37.0-80.0); Platelet Count 303 K/mm3 (142-424); Red Blood Count 4.66 M/mm3 (4.20-5.40); Red Cell Distribution Width 13.3 % (11.5-17.5); White Blood Count 9.4 K/mm3 (4.8-10.8)
== END ==
PROVIDERS: PCP Nurse Practitioner; Visit Provider Nurse Practitioner
DX: Z20.822 Contact with and (suspected) exposure to COVID-19 (principal)
CPT/HCPCS: 36415; 71045; 85025; C9803; U0003; U0005

== ENCOUNTER 2021-09-18 10:25 | Emergency (ER) | payer MEDICARE, SELFPAY ==
[2021-09-18 10:30] VITALS: BP 125/80; PULSE 103; RESP 24; TEMP 37.1; O2SAT 97; BMI 23.3
--- NOTE | 2021-09-18 11:02 | HMH.EDUTC ---
[facility] Dis[facility] Clinical Impression: Cough, Strep throat Sinusitis Qualifiers: Sinusitis location: unspecified location Chronicity: unspecified Qualified Code(s): J32.9 - Chronic sinusitis, unspecified Disposition: Home, Self-Care Condition on Discharge: Good Instructions: Sore Throat, Sinusitis, DI for Sinusitis, DI for Cough -- Adult Additional Instructions: *Monitor Temp, Over the counter Motrin or Tylenol as directed/as needed Tylenol every 4 hours and Motrin every 6 hours (as long as your family doctor has told you that you can take it) for fever or pain. and straight to ER if unable to lower temp less than 101.0 after medication given *Warm salt water gargles may help to soothe the throat *Throat Lozenges *Warm fluids like tea with honey may help to soothe the throat *Sleep elevated *Humidifier/Vaporizer *Flonase 2 sprays in each nostril daily but be aware that it may take 2-3 days before you notice improvement *Bromfed may cause drowsiness. Know how it effects you (your child) before driving, caring for small child, or sending your child to school. Not other antihistamines/allergy medications while taking bromfed Your throat swab was sent for culture. Those results are typically sent to your primary care. Be sure to follow up in 2-3 days with your family doctor/primary care physician if no improvement so they can review those result and treat if necessary. If you don?t have a primary care doctor, I recommend you get one but in the mean time, you will have to return to a walk in clinic Follow up IMMEDIATELY for new or worsening symptoms or no Noticeable improvement over the next 48-72 hours. 911 for difficulty breathing or swallowing Prescriptions: Azithromycin [Z-Domingo 250mg Tab] 250 mg PO DIRECTED #6 tab Transmission Status: Received by [facility] Referrals: Newton Fernandes MD [Primary Care Provider] - As needed Time of Disposition: 11:28 Medical Decision Making - Doug Inquiry Pt receiving controlled substance: No Doug was queried for this patient: No Vital Signs: 09/18/21 10:30 09/18/21 11:34 Temperature 98.8 F 98.8 F Temperature Source Oral Pulse Rate 103 H Pulse Rate [Right Brachial] 103 H Respiratory Rate 24 24 Blood Pressure 125/80 Blood Pressure [Right Arm] 125/80 Blood Pressure Mean [Right Arm] 95 Blood Pressure Source [Right Arm] Automatic Cuff Blood Pressure Position [Right Arm] Sitting 02 Sat by Pulse Oximetry 97 Oxygen Delivery Method Room Air - Lab Data Lab results reviewed: Yes: I reviewed the patient's lab results. Lab Results 09/18/21 10:48: Strep Scn Rapid Clinic Positive A Orders (Tests/Meds): ED MEDICATIONS Discontinued Medications Generic Name Dose Route Start Last Admin Trade Name Moy PRN Reason Stop Dose Admin Ceftriaxone Sodium 1 gm 09/18/21 11:08 09/18/21 11:20 Ceftriaxone 1gm Vial IM 09/18/21 11:09 1 gm ONCE ONE Administration Lidocaine HCl 0 ml 09/18/21 11:08 09/18/21 11:20 Lidocaine 1% 5ml Pf Vial IM 09/18/21 11:09 2 ml ONCE ONE Administration Methylprednisolone Sodium Succinate 125 mg 09/18/21 11:08 09/18/21 11:20 Methylprednisolone Sod Succ 125mg Vial IM 09/18/21 11:09 125 mg ONCE ONE Administration Medical Decision Narrative: Patient state that she has taken solumedrol and azithromycin in the past without complications or reactions [facility] H[place] - General Stated complaint: sore throat,cough,SOA,headache Time Seen by Provider: 09/18/21 11:02 Mode of Arrival: Ambulatory Source of Information: Patient Limitations: No Limitations Description of Symptoms (Recalled from Triage Doc. by RN): PATIENT C/O HEADACHE, SORE THROAT, HEAD CONGESTION AND COUGH WITH YELLOW SPUTUM X 3 DAYS. HEENT Symptoms (Recalled from RN notes): Yes Resp Symptoms (Recalled from RN notes): Yes Skin Symptoms (Recalled from RN notes): No MS Symptoms (Recalled from RN notes): No Functional Status (Recal
[2021-09-18 11:17] LABS: UTC Strep Screen (Rapid) Positive (Negative)
[2021-09-18 11:34] VITALS: BP 125/80; PULSE 103; RESP 24; TEMP 37.1; O2SAT 97
== END 2021-09-18 11:40 | disposition home or self-care (01) ==
PROVIDERS: Emergency Provider Nurse Practitioner; PCP Family Medicine
DX: J32.9 Chronic sinusitis, unspecified (principal); J02.9 Acute pharyngitis, unspecified; E03.9 Hypothyroidism, unspecified; K21.9 Gastro-esophageal reflux disease without esophagitis; M79.7 Fibromyalgia
CPT/HCPCS: G0463; 87880; 96372; 99202; C9803; U0003; U0005

== ENCOUNTER → 2022-01-27 14:04 | Outpatient (CLI) | payer MEDICARE, SELFPAY ==
--- NOTE | 2022-01-27 14:09 | CA_ITS ---
APPROVED REPORT EXAM: Comprehensive 2D, Doppler, and color-flow Echocardiogram [employer] Supervisor: Keiry Ma RVT Ht: 5 ft 6 in Wt: 145lbs BSA: 1.74 BP: 172/80 mmHg Indications: HTN,PALPS,HTN 2D Dimensions LVOT 2.03 cm (M/F) 1.5-2.5 LA Volume 17.90 mL LA Volume Index 10.28 mL/m2 (M/F) 16-34 M-Mode Dimensions RVDd 2.73 cm (0.9-2.6) LA Diam 3.32 cm (1.9-4.0) LVDd 3.98 cm (3.5-5.7) Ao Diam 3.03 cm (2.0-3.7) LVDs 2.20 cm (3.5-5.7) IVSd 1.10 cm (0.6-1.1) PWd 1.21 cm (0.6-1.1) EF (Teich) 76.60% FS 44.70% EDV (Teich) 69.20 mL TAPSE 2.76 (<1.7) ESV (Teich) 16.20 mL LV Diastology E Decel Time 250.00 (160-240 msec) E/A Ratio 1.2 MED E' 5.70 (< 7 cm/sec) E'/MED E' Ratio 14.46 (>14) LAT E' 6.20 (<10 cm/sec) E/LAT E' Ratio 13.29 (>14) Aortic Valve AO Peak GR. 8.00 mmHg Mitral Valve MV E Max Johny. 82.00 (40-130 cm/s) MV A Velocity 66.00 (40-130 cm/s) E/A Ratio 1.25 MV Decel. Time 250.00 (160-240 ms) MV PHT 73.00 ms Pulmonary Valve PV Peak Velocity 67.00 (50-150 cm/s) Tricuspid Valve TR P. Velocity 248.00 cm/s RAP Estimate 10.00 mmHg RVSP 34.60 mmHg Left Ventricle Left atrium is mildly enlarged, left ventricular normal size, mild concentric left ventricular hypertrophy, estimated ejection fraction 55% with no regional wall motion abnormality, grade 1 diastolic dysfunction seen without tissue Doppler evidence of atypical pressure. Right Ventricle Right atrium and right ventricle are normal size and contractility. Aortic Valve Aortic valve is minimally thickened and fibrosed there is no aortic stenosis, there is no aortic insufficiency. Mitral Valve Mitral valve grossly normal, there is trace mitral regurgitation. Tricuspid Valve Tricuspid grossly normal, there is trace tricuspid regurgitation, tricuspid regurgitation (inadequate for calculation of the right ventricular systolic pressure. Pulmonic Valve Pulmonic valve is poorly visualized. Great Vessels Aortic root is normal size. Inferior vena cava is poorly visualized. Pericardium No significant pericardial effusion. Conclusion 1. Mildly enlarged left atrium, normal left ventricular size, mild concentric left ventricular hypertrophy, estimated ejection fraction 55% with no regional wall motion abnormality, grade 1 diastolic dysfunction seen without tissue Doppler evidence of raise left atrial pressure. 2. Trace mitral and tricuspid regurgitation. 3. No significant pericardial effusion. 4. Inferior vena cava is poorly visualized. Electronically signed by : Jairo Fox MD 01/27/2022 20:38:50
--- NOTE | 2022-01-27 14:54 | XR_ITS ---
FINAL REPORT TECHNIQUE: Chest PA & Lateral CLINICAL HISTORY: PRIMARY HYPERTENSION. HEART PALPITATIONS. COMPARISON: July 31, 2021 FINDINGS: 2 views of the chest were performed. The heart size is normal. There is an unfolded aorta. The mediastinum is within normal limits. There is no acute cardiopulmonary process. There are no pleural effusions. There is no pneumothorax. The bony thorax appears intact. Surgical clips are noted in the left breast. IMPRESSION: No acute cardiopulmonary process. Reviewed, Interpreted and Dictated by Parish Vogel MD Transcribed by Erika Mahmood Authenticated by Parish Vogel MD on 01/27/2022 04:52:05 PM [facility]
== END ==
PROVIDERS: PCP Family Medicine; Visit Provider Family Medicine
DX: R00.2 Palpitations (principal); I10 Essential (primary) hypertension
CPT/HCPCS: 71046; 93306

== ENCOUNTER → 2022-03-10 15:16 | Outpatient (CLI) | payer MEDICARE, SELFPAY | PROVIDERS: Visit Provider Internal Medicine Gastroenterology | DX: Z01.812 Encounter for preprocedural laboratory examination (principal); Z20.822 Contact with and (suspected) exposure to COVID-19; Z12.11 Encounter for screening for malignant neoplasm of colon; K62.5 Hemorrhage of anus and rectum | CPT/HCPCS: C9803; U0003; U0005 ==

== ENCOUNTER 2022-03-12 07:36 | Day surgery (SDC) | payer MEDICARE, SELFPAY ==
[2022-03-09 12:55] VITALS: BMI 23.3
[2022-03-12 07:54] VITALS: BP 129/67; PULSE 66; RESP 18; TEMP 36.9; O2SAT 99
--- NOTE | 2022-03-12 08:16 | P.PN_ITS ---
[facility] Anesthesia Checklist - Patient Identification Patient Identification: Arm Band - Structural Data Admitted From: Home Planned Operative Procedure/s: Colonoscopy Consent for Planned Operative Procedure(s) Verified: Yes Verified Documents: Surgical Consent, History and Physical - NPO Status Verified Time NPO: 00:00 - Additional verifications Anesthesia Reactions: No - Airway Assessment C-Spine Mobility Assessed: Yes (mp2) TMJ Mobility Assessed: Yes Dentition: Good Dentition - Neurological Assessment Level of Consciousness: Awake, Alert - Anesthesia Plan Anesthesia Risk discussed: Yes Anesthesia Plan: Verified ASA Class: II Anesthesia Type: MAC [facility] History I have reviewed the patient's past medical history: Yes Medical History: Reports:: Anxiety, Depression, Gastroesophageal Reflux Disease(GERD), Hyperlipidemia, Hypertension Denies:: Atrial Fibrillation, Cancer, Chronic Obstructive Pulmonary Disease (COPD), Diabetes Mellitus Type 1, Diabetes Mellitus Type 2, Internal Pacemaker, Lung Disease, MRSA, Seizures *Have you ever received a pneumonia vaccine?: Yes *Have you received a flu vaccine this season?: Yes Other Medical History: Denies: Arthritis, Hypothyroidism Anesthesia experience/problems:: nac Laterality Cases: Left: Lumpectomy, Right: Other, Bilateral: Tonsillectomy Other Surgeries: Yes: Hysterectomy-Total. No: Pacemaker Amputation: No Fractures: Yes (right arm/wrist) - *Social History Last grade of school completed: High school graduate Smoking Status: Never smoker Alcohol Intake: never Substance Use Type: denies use *Occupational Status:: retired Housing: house Household Members: significant other *Travel in the last 8 weeks: None - Psychiatric History Pschychiatric History:: Reports:: Anxiety, Depression Family Hx:: Heart Attack, Cancer
[2022-03-12 08:35] VITALS: O2SAT 99
--- NOTE | 2022-03-12 08:58 | HMH.SCOPE ---
- Procedure: Date: 03/12/22 Patient Date of :: 1950 Procedure Performed:: Diagnostic colonoscopy Indications:: Rectal bleeding Performing Provider:: Bere Jerome MD Referring Provider:: Newton Fernandes MD Sedation:: Propofol Procedure:: After placing the patient in the left lateral decubitus position, the colonoscopy was gently inserted into the rectum and under direct visualization advanced to the cecum which was identified by transillumination in the right lower quadrant, identification of the ileocecal valve, appendiceal orifice, and cecal strap. Color, texture, mucosa, and anatomy of the colon were carefully examined with the scope. Findings:: Anal canal: normal Rectum: normal Sigmoid colon: normal without polyps or inflammatory changes, mild melanosis noted Descending colon: normal without polyps or inflammatory changes Splenic flexure: normal Transverse colon: normal without polyps or inflammatory changes, mild melanosis noted Hepatic flexure: normal Ascending colon: normal without polyps or inflammatory changes, mild melanosis noted Cecum: normal Terminal ileum: not visualized Impression: Normal colonoscopy with mild melanosis coli Recommendations:: Repeat examination in about TEN years or so, sooner if clinically indicated Complications:: None Estimated blood obtained (mL): 0
[2022-03-12 09:00] VITALS: BP 96/56; PULSE 64; RESP 16; TEMP 36.4; O2SAT 95
[2022-03-12 09:10] VITALS: BP 99/61; PULSE 64; RESP 16; O2SAT 94
[2022-03-12 09:20] VITALS: BP 102/61; PULSE 57; RESP 16; O2SAT 96
[2022-03-12 09:30] VITALS: BP 102/61; PULSE 57; RESP 16; TEMP 36.4; O2SAT 96
== END 2022-03-12 09:30 | disposition home or self-care (01) ==
PROVIDERS: PCP Family Medicine; Visit Provider Internal Medicine Gastroenterology
PROC: 0DJD8ZZ Inspection of Lower Intestinal Tract, Via Natural or Artificial Opening Endoscopic (ICD-10-PCS; CPT 45378; principal; 2022-03-12 09:00)
DX: K63.89 Other specified diseases of intestine (principal); K62.5 Hemorrhage of anus and rectum; F41.9 Anxiety disorder, unspecified; F32.A Depression, unspecified; K21.9 Gastro-esophageal reflux disease without esophagitis; E78.5 Hyperlipidemia, unspecified; I10 Essential (primary) hypertension; M19.90 Unspecified osteoarthritis, unspecified site; E03.9 Hypothyroidism, unspecified; Z79.899 Other long term (current) drug therapy
CPT/HCPCS: 45378

== ENCOUNTER → 2022-07-06 07:05 | Outpatient (CLI) | payer MEDICARE, SELFPAY ==
[2022-07-06 18:07] LABS: Adenovirus,PCR Not Detected (NotDetected); Bordetella Pertussis Not Detected (NotDetected); Chlamydophila Pneumoniae, PCR Not Detected (NotDetected); Coronavirus 19, PCR Not Detected (NotDetected); Coronavirus 229E Not Detected (NotDetected); Coronavirus NL63 Not Detected (NotDetected); Coronavirus OC43 Not Detected (NotDetected); Coronovirus HKU1,PCR Not Detected (NotDetected); Human Metapneumovirus Not Detected (NotDetected); Influenza A, PCR Not Detected (NotDetected); Influenza AH1, 2009 Not Detected (NotDetected); Influenza AH1, PCR Not Detected (NotDetected); Influenza AH3,PCR Not Detected (NotDetected); Influenza B, PCR Not Detected (NotDetected); Mycoplasma Pneumoniae, PCR Not Detected (NotDetected); Parainfluenza 1, PCR Not Detected (NotDetected); Parainfluenza 2, PCR Not Detected (NotDetected); Parainfluenza 3, PCR Not Detected (NotDetected); Parainfluenza 4, PCR Not Detected (NotDetected); Respiratory Syncytial Virus Not Detected (NotDetected); Rhinovirus/Enterovirus Not Detected (NotDetected)
[2022-07-06 22:29] LABS: Basophils # 0.1 K/mm3 (0-0.2); Basophils % 0.9 % (0.1-2.0); Eosinophils # 0.1 K/mm3 (0.0-0.4); Eosinophils % 1.3 % (0.1-12.0); Hematocrit 41.9 % (37.0-47.0); Hemoglobin 13.4 g/dL (12.2-16.2); Lymphocytes # 1.4 K/mm3 (0.7-4.5); Lymphocytes % 16.3 % (10-50); Mean Corpuscular HGB Conc 31.9 g/dL (31.8-35.4); Mean Corpuscular Hemoglobin 30.7 pg (27.0-31.2); Mean Corpuscular Volume 96.2 fl (81-99); Mean Platelet Volume 10.7 fl (7.4-10.4); Monocytes # 0.6 K/mm3 (0.1-1.0); Monocytes % 6.4 % (1.7-9.3); Neutrophils # 6.5 K/mm3 (1.8-7.8); Neutrophils % 75.2 % (37.0-80.0); Platelet Count 336 K/mm3 (142-424); Red Blood Count 4.36 M/mm3 (4.20-5.40); Red Cell Distribution Width 13.2 % (11.5-17.5); White Blood Count 8.6 K/mm3 (4.8-10.8)
== END ==
PROVIDERS: PCP Family Medicine; Visit Provider Family Medicine
DX: J32.9 Chronic sinusitis, unspecified (principal); R05.9 Cough, unspecified; Z20.822 Contact with and (suspected) exposure to COVID-19
CPT/HCPCS: 85025; 87581; 87632; 87798; C9803; U0003; U0005

== ENCOUNTER → 2022-08-14 12:10 | Outpatient (CLI) | payer MEDICARE, SELFPAY ==
--- NOTE | 2022-08-14 12:17 | XR_ITS ---
FINAL REPORT CLINICAL HISTORY: LLE pain, pain after fall 2 mos ago FINDINGS: LEFT ANKLE 2 views of the left ankle were obtained. There are postoperative changes of the medial and lateral malleoli. There is no acute fracture or dislocation. There are mild degenerative changes of the ankle. There is no soft tissue abnormality. IMPRESSION: Postoperative and mild degenerative change with no acute bony abnormality. Reviewed, Interpreted and Dictated by Johnnie Birmingham III, MD Transcribed by Erika Mahmood Authenticated and [facility]
--- NOTE | 2022-08-14 12:17 | XR_ITS ---
FINAL REPORT CLINICAL HISTORY: LLE pain, injured 2 mos ago, still painful lateral left left FINDINGS: LEFT KNEE Two views of the left knee were obtained. There is a comminuted fracture of the proximal fibular diaphysis with callus formation at the fracture site. This appears to be subacute. The bony alignment is normal. The joint spaces are preserved. There is no evidence of joint effusion. No localized soft tissue abnormality is seen. There is no evidence of foreign body. IMPRESSION: Subacute appearing comminuted fracture of the proximal fibular diaphysis. Reviewed, Interpreted and Dictated by Johnnie Birmingham III, MD Transcribed by Erika Mahmood Authenticated and [facility]
== END ==
PROVIDERS: PCP Family Medicine; Visit Provider Family Medicine
DX: S89.92XA Unspecified injury of left lower leg, initial encounter (principal); M79.662 Pain in left lower leg
CPT/HCPCS: 73560; 73600

== ENCOUNTER → 2022-09-21 09:30 | Outpatient (CLI) | payer MEDICARE, SELFPAY ==
[2022-09-21 19:28] LABS: Basophils % 0.8 % (0.1-2.0); Eosinophils # 0.1 K/mm3 (0.0-0.4); Eosinophils % 2.2 % (0.1-12.0); Hematocrit 40.7 % (37.0-47.0); Hemoglobin 12.8 g/dL (12.2-16.2); Lymphocytes # 1.3 K/mm3 (0.7-4.5); Lymphocytes % 27.7 % (10-50); Mean Corpuscular HGB Conc 31.5 g/dL (31.8-35.4); Mean Corpuscular Hemoglobin 30.5 pg (27.0-31.2); Mean Corpuscular Volume 96.8 fl (81-99); Mean Platelet Volume 9.8 fl (7.4-10.4); Monocytes # 0.4 K/mm3 (0.1-1.0); Monocytes % 8.5 % (1.7-9.3); Neutrophils # 2.9 K/mm3 (1.8-7.8); Neutrophils % 60.8 % (37.0-80.0); Platelet Count 325 K/mm3 (142-424); Red Blood Count 4.21 M/mm3 (4.20-5.40); Red Cell Distribution Width 13.3 % (11.5-17.5); White Blood Count 4.8 K/mm3 (4.8-10.8)
[2022-09-21 19:50] LABS: Alanine Aminotransferase 19 U/L (12-78); Albumin Level 4.4 g/dl (3.5-5.0); Alkaline Phosphatase 87 U/L (38-126); Anion Gap 9.2 mEq/L (5-15); Aspartate Amino Transferase 22 U/L (14-36); Bilirubin,Total 0.8 mg/dl (0.2-1.3); Blood Urea Nitrogen 16 mg/dl (7-17); Calcium 10.2 mg/dl (8.4-10.2); Carbon Dioxide 31 mmol/L (22.0-30.0); Chloride 106 mmol/L (98-107); Chol/HDL Ratio 4.1 (1-3.5); Cholesterol 239 mg/dl (140-200); Estimated Glomerular Filt Rate 82 ml/min (>60); GFR (African American) 100 ML/MIN (>60); Globulin 2.2 g/dL (1.3-3.2); Glucose 105 mg/dl (74-100); HDL Cholesterol 58 mg/dl (40-60); Potassium 5.2 mmoL/L (3.5-5.1); Sodium 141 mmol/L (136-145); Total Protein,Serum 6.6 g/dl (6.3-8.2); Triglycerides 108 mg/dl (30-150); VLDL Cholesterol 22 mg/dL (0-40)
[2022-09-21 20:01] LABS: Direct LDL Cholesterol 136.31 mg/dL (100-129)
[2022-09-21 20:07] LABS: 25-OH Vitamin D, Total 30.8 ng/mL (30-100)
[2022-09-21 20:20] LABS: Hemoglobin A1C 5.5 % (4.0-6.0)
[2022-09-21 20:46] LABS: Vitamin B12 > 1000 pg/mL (239-931)
== END ==
PROVIDERS: PCP Family Medicine; Visit Provider Family Medicine
DX: E78.5 Hyperlipidemia, unspecified (principal); I10 Essential (primary) hypertension; R07.2 Precordial pain; E11.9 Type 2 diabetes mellitus without complications; F41.8 Other specified anxiety disorders; E55.9 Vitamin D deficiency, unspecified
CPT/HCPCS: 80053; 80061; 82306; 82607; 83036; 84443; 85025

== ENCOUNTER → 2022-10-16 12:30 | Outpatient (CLI) | payer MEDICARE, SELFPAY ==
[2022-10-16 18:29] LABS: Adenovirus,PCR Not Detected (NotDetected); Bordetella Pertussis Not Detected (NotDetected); Chlamydophila Pneumoniae, PCR Not Detected (NotDetected); Coronavirus 19, PCR Not Detected (NotDetected); Coronavirus 229E Not Detected (NotDetected); Coronavirus NL63 Not Detected (NotDetected); Coronavirus OC43 Not Detected (NotDetected); Coronovirus HKU1,PCR Not Detected (NotDetected); Human Metapneumovirus Not Detected (NotDetected); Influenza A, PCR Not Detected (NotDetected); Influenza AH1, PCR Not Detected (NotDetected); Influenza AH3,PCR Not Detected (NotDetected); Influenza B, PCR Not Detected (NotDetected); Mycoplasma Pneumoniae, PCR Not Detected (NotDetected); Parainfluenza 1, PCR Not Detected (NotDetected); Parainfluenza 2, PCR Not Detected (NotDetected); Parainfluenza 3, PCR Not Detected (NotDetected); Parainfluenza 4, PCR Not Detected (NotDetected); Respiratory Syncytial Virus Not Detected (NotDetected); Rhinovirus/Enterovirus Not Detected (NotDetected)
[2022-10-16 19:33] LABS: Basophils % 0.5 % (0.1-2.0); Eosinophils # 0.1 K/mm3 (0.0-0.4); Hematocrit 40.5 % (37.0-47.0); Hemoglobin 13.3 g/dL (12.2-16.2); Lymphocytes # 1.5 K/mm3 (0.7-4.5); Lymphocytes % 18.4 % (10-50); Mean Corpuscular HGB Conc 32.9 g/dL (31.8-35.4); Mean Corpuscular Hemoglobin 30.9 pg (27.0-31.2); Mean Platelet Volume 9.4 fl (7.4-10.4); Monocytes # 0.6 K/mm3 (0.1-1.0); Monocytes % 7.7 % (1.7-9.3); Neutrophils # 5.8 K/mm3 (1.8-7.8); Neutrophils % 72.5 % (37.0-80.0); Platelet Count 340 K/mm3 (142-424); Red Blood Count 4.31 M/mm3 (4.20-5.40); Red Cell Distribution Width 13.3 % (11.5-17.5)
[2022-10-16 21:56] LABS: Influenza AH1, 2009 Detected (NotDetected)
== END ==
PROVIDERS: PCP Family Medicine; Visit Provider Family Medicine
DX: R07.2 Precordial pain (principal); J09.X2 Influenza due to identified novel influenza A virus with other respiratory manifestations
CPT/HCPCS: 85025; 87581; 87632; 87798; C9803; U0003; U0005

== ENCOUNTER → 2022-10-27 11:18 | Outpatient (CLI) | payer MEDICARE, SELFPAY ==
--- NOTE | 2022-10-27 11:22 | XR_ITS ---
FINAL REPORT CLINICAL HISTORY: bronchitis congestion cough pain x 2 weeks breast surgery 2009 -lumpectomy COMPARISON: January 27, 2022 FINDINGS: Two views of the chest were obtained. The heart size and pulmonary vascularity are within normal limits. The mediastinum is normal. No acute pulmonary abnormality is identified. There is no pneumothorax. The bony thorax is intact. There are postoperative changes along the left anterior chest wall. IMPRESSION: No active cardiopulmonary disease. Reviewed, Interpreted and Dictated by Johnnie Birmingham III, MD Transcribed by Erika Mahmood Authenticated and [facility]
[2022-10-27 19:39] LABS: Basophils # 0.1 K/mm3 (0-0.2); Basophils % 1.3 % (0.1-2.0); Eosinophils # 0.2 K/mm3 (0.0-0.4); Eosinophils % 2.6 % (0.1-12.0); Hematocrit 42.2 % (37.0-47.0); Hemoglobin 13.2 g/dL (12.2-16.2); Lymphocytes # 1.4 K/mm3 (0.7-4.5); Lymphocytes % 17.9 % (10-50); Mean Corpuscular HGB Conc 31.2 g/dL (31.8-35.4); Mean Corpuscular Hemoglobin 30.5 pg (27.0-31.2); Mean Corpuscular Volume 97.9 fl (81-99); Monocytes # 0.6 K/mm3 (0.1-1.0); Monocytes % 7.9 % (1.7-9.3); Neutrophils # 5.6 K/mm3 (1.8-7.8); Neutrophils % 70.4 % (37.0-80.0); Platelet Count 400 K/mm3 (142-424); Red Blood Count 4.32 M/mm3 (4.20-5.40); Red Cell Distribution Width 13.5 % (11.5-17.5); White Blood Count 7.9 K/mm3 (4.8-10.8)
== END ==
PROVIDERS: PCP Family Medicine; Visit Provider Family Medicine
DX: R05.3 Chronic cough (principal); R07.2 Precordial pain
CPT/HCPCS: 71046; 85025

== ENCOUNTER → 2022-10-30 01:00 | Outpatient (CLI) | payer MEDICARE, SELFPAY ==
[2022-10-30 18:36] LABS: Anion Gap 8.3 mEq/L (5-15); Blood Urea Nitrogen 20 mg/dl (7-17); Calcium 9.3 mg/dl (8.4-10.2); Carbon Dioxide 33 mmol/L (22.0-30.0); Chloride 101 mmol/L (98-107); Estimated Glomerular Filt Rate 98 ml/min (>60); GFR (African American) 119 ML/MIN (>60); Glucose 107 mg/dl (74-100); Potassium 4.3 mmoL/L (3.5-5.1); Sodium 138 mmol/L (136-145)
== END ==
PROVIDERS: PCP Family Medicine; Visit Provider Family Medicine
DX: E87.5 Hyperkalemia (principal)
CPT/HCPCS: 80048

== ENCOUNTER → 2022-12-25 11:00 | Outpatient (CLI) | payer MEDICARE, SELFPAY ==
[2022-12-25 19:15] LABS: Basophils # 0.1 K/mm3 (0-0.2); Basophils % 0.7 % (0.1-2.0); Eosinophils # 0.2 K/mm3 (0.0-0.4); Hematocrit 43.8 % (37.0-47.0); Hemoglobin 13.9 g/dL (12.2-16.2); Lymphocytes # 1.6 K/mm3 (0.7-4.5); Lymphocytes % 19.8 % (10-50); Mean Corpuscular HGB Conc 31.8 g/dL (31.8-35.4); Mean Corpuscular Hemoglobin 30.3 pg (27.0-31.2); Mean Corpuscular Volume 95.4 fl (81-99); Mean Platelet Volume 9.1 fl (7.4-10.4); Monocytes # 0.6 K/mm3 (0.1-1.0); Monocytes % 7.9 % (1.7-9.3); Neutrophils # 5.7 K/mm3 (1.8-7.8); Neutrophils % 69.7 % (37.0-80.0); Platelet Count 354 K/mm3 (142-424); Red Blood Count 4.59 M/mm3 (4.20-5.40); Red Cell Distribution Width 12.9 % (11.5-17.5); White Blood Count 8.2 K/mm3 (4.8-10.8)
== END ==
PROVIDERS: PCP Family Medicine; Visit Provider Family Medicine
DX: R49.0 Dysphonia (principal)
CPT/HCPCS: 85025

== ENCOUNTER → 2023-03-03 12:16 | Outpatient (CLI) | payer MEDICARE, SELFPAY | PROVIDERS: PCP Family Medicine; Visit Provider Family Medicine | DX: G47.33 Obstructive sleep apnea (adult) (pediatric) (principal); G47.00 Insomnia, unspecified; R06.83 Snoring | CPT/HCPCS: G0399 ==

== ENCOUNTER 2023-04-14 14:16 | Emergency (ER) | payer MEDICARE, SELFPAY ==
--- NOTE | 2023-04-14 14:20 | XR_ITS ---
FINAL REPORT CLINICAL HISTORY: SLIPPED OFF OF A CURB COMPARISON: 07/15/2022 FINDINGS: Left foot Three views were obtained. There is no acute fracture or dislocation. There are postoperative changes in the medial and lateral malleoli. The joint spaces appear normal. No soft tissue abnormality is identified. IMPRESSION: No acute process. Reviewed, Interpreted and Dictated by Johnnie Birmingham III, MD Transcribed by Marie Ortiz Authenticated and [facility]
[2023-04-14 14:35] VITALS: BP 120/76; PULSE 75; RESP 18; TEMP 36.9; O2SAT 98; BMI 22.0
--- NOTE | 2023-04-14 14:47 | EXP.UTC ---
Discharge Plan Disposition Patient Disposition: Home, Self-Care Condition: Good Prescriptions Prescriptions: No Action atorvastatin 20 mg tablet 20 mg PO HS Qty: 90 1RF furosemide 20 mg tablet 20 mg PO meloxicam 15 mg tablet 15 mg PO DAILY Qty: 30 0RF quetiapine [Seroquel] 25 mg tablet 25 mg PO DAILY Qty: 30 2RF sulfacetamide sodium 10 % drops 1 drp ophthalmic (eye) Q4H Qty: 15 0RF albuterol sulfate [Ventolin HFA] 90 mcg/actuation HFA aerosol inhaler 2 puff inhalation QID PRN (Reason: shortness of breath or wheezing) Qty: 6.7 1RF fexofenadine 180 mg tablet 180 mg PO DAILY Qty: 30 2RF bupropion HCl 300 mg tablet extended release 24 hr 300 mg PO DAILY Qty: 30 3RF bisoprolol fumarate 5 mg tablet 5 mg PO DAILY Qty: 90 1RF duloxetine 60 mg capsule,delayed release(DR/EC) See Rx Instructions .ROUTE .COMPLEX Qty: 90 0RF Dose Instruction: TAKE 1 CAPSULE EVERY DAY Rx Instructions: TAKE 1 CAPSULE EVERY DAY dextroamphetamine-amphetamine [Adderall XR] 25 mg capsule,extended release 24hr 25 mg PO DAILY Qty: 30 0RF alprazolam 0.25 mg tablet 0.25 mg PO TID Qty: 90 0RF Referrals Follow up/Referrals: Florinda Morales MD [Primary Care Provider] - See instructions Activity Restrictions/Add. Instructions Additional Instructions/Restrictions: *weight bearing as tolerated *RICE, Rest the extremity, Ice 15-20 minutes 3-4 times daily, Compress- wear the checo wrap as discussed as much as possible to help reduce swelling and pain, Elevate the extremity when at rest *Checo wrap is for support and help control swelling, use it except in the shower. Be sure that is not to tight but not to loose either *Elevate when resting? *Ibuprofen 600-800mg every 6-8 hours as needed for pain an inflammation. If need something more can take Tylenol in between doses of Ibuprofen to help Immediately follow up with your family doctor for new or worsening of symptoms, or no noticeable improvement over the next 3-5 days Clinical Impressions Clinical Impression: Strain of foot, left Qualifiers: Encounter type: initial encounter Qualified Code(s): S96.912A - Strain of unspecified muscle and tendon at ankle and foot level, left foot, initial encounter Instructions Patient Instructions: How To Perform RICE (Rest, Ice, Compress, Elevate), Ibuprofen Discharge ED Provider: María Trujillo [facility] HPI General Stated complaint: AO 04/11 LT Foot pain Mode of Arrival: Ambulatory Source of Information: Patient Limitations: No Limitations Time Seen by Provider: 04/14/23 14:47 Description of Symptoms (Recalled from Triage Doc. by RN): PATIENT C/O LEFT FOOT PAIN AFTER STEPPING OFF OF A CURB WRONG ON WEDNESDAY HEENT Symptoms (Recalled from RN notes): No Resp Symptoms (Recalled from RN notes): No Skin Symptoms (Recalled from RN notes): No MS Symptoms (Recalled from RN notes): Yes Functional Status (Recalled from RN notes): WNL History of Present Illness Provider Complaint: Patient states that on Wednesday she stepped off Curb and hurt her foot a little States that later she was sitting on the ground with her grandchild and went to get up and had pain in the top of her left foot that went through foot into bottom of foot States that she hasnt had any swelling or bruising Related Data Home Medications Medication Instructions Recorded Confirmed furosemide 20 mg tablet 20 mg PO 06/03/22 03/16/23 Previous Rx's Medication Instructions Recorded atorvastatin 20 mg tablet 20 mg PO HS High cholesterol #90 04/30/22 tabs meloxicam 15 mg tablet 15 mg PO DAILY #30 tabs 07/06/22 duloxetine 60 mg capsule,delayed See Rx Instructions .Route 12/11/22 release .COMPLEX #90 caps bisoprolol fumarate 5 mg tablet 5 mg PO DAILY BP #90 tabs 12/15/22 albuterol sulfate 90 mcg/actuation 2 puff inhalation QID PRN 12/25/22 aerosol inhaler (Ventolin HFA) shortness of breath or wheezing #6.7 grams sulfacetamide sod
[2023-04-14 15:38] VITALS: BP 120/76; PULSE 75; RESP 18; TEMP 36.9; O2SAT 98
== END 2023-04-14 15:40 | disposition home or self-care (01) ==
PROVIDERS: Emergency Provider Nurse Practitioner; PCP Family Medicine
DX: S96.912A Strain of unspecified muscle and tendon at ankle and foot level, left foot, initial encounter (principal); I10 Essential (primary) hypertension; G47.00 Insomnia, unspecified; E78.49 Other hyperlipidemia; F41.9 Anxiety disorder, unspecified; X50.1XXA Overexertion from prolonged static or awkward postures, initial encounter
CPT/HCPCS: 73630; 99212; 99214; G0463

== ENCOUNTER → 2023-05-11 23:26 | Outpatient (CLI) | payer MEDICARE, SELFPAY ==
[2023-05-11 19:01] LABS: Alanine Aminotransferase 24 U/L (12-78); Albumin Level 4.2 g/dl (3.5-5.0); Albumin/Globulin Ratio 1.8 (1.1-1.8); Alkaline Phosphatase 67 U/L (38-126); Anion Gap 7.9 mEq/L (5-15); Aspartate Amino Transferase 29 U/L (14-36); Bilirubin,Total 0.6 mg/dl (0.2-1.3); Blood Urea Nitrogen 18 mg/dl (7-17); Calcium 9.7 mg/dl (8.4-10.2); Carbon Dioxide 33 mmol/L (22.0-30.0); Chloride 102 mmol/L (98-107); Estimated Glomerular Filt Rate 82 ml/min (>60); GFR (African American) 99 ML/MIN (>60); Globulin 2.4 g/dL (1.3-3.2); Glucose 85 mg/dl (74-100); Potassium 4.9 mmoL/L (3.5-5.1); Sodium 138 mmol/L (136-145); Total Protein,Serum 6.6 g/dl (6.3-8.2)
== END ==
PROVIDERS: PCP Family Medicine; Visit Provider Family Medicine
DX: B02.9 Zoster without complications (principal); G47.00 Insomnia, unspecified; I10 Essential (primary) hypertension; J30.2 Other seasonal allergic rhinitis; R05.3 Chronic cough; R06.83 Snoring; S96.912A Strain of unspecified muscle and tendon at ankle and foot level, left foot, initial encounter
CPT/HCPCS: 80053

== ENCOUNTER → 2023-08-19 23:31 | Outpatient (CLI) | payer MEDICARE, SELFPAY ==
[2023-08-19 19:15] LABS: Basophils % 0.4 % (0.1-2.0); Eosinophils # 0.1 K/mm3 (0.0-0.4); Eosinophils % 2.6 % (0.1-12.0); Hematocrit 43.7 % (37.0-47.0); Hemoglobin 14.6 g/dL (12.2-16.2); Lymphocytes # 0.9 K/mm3 (0.7-4.5); Lymphocytes % 16.4 % (10-50); Mean Corpuscular HGB Conc 33.5 g/dL (31.8-35.4); Mean Corpuscular Hemoglobin 31.9 pg (27.0-31.2); Mean Corpuscular Volume 95.2 fl (81-99); Mean Platelet Volume 10.1 fl (7.4-10.4); Monocytes # 0.5 K/mm3 (0.1-1.0); Monocytes % 8.9 % (1.7-9.3); Neutrophils # 3.8 K/mm3 (1.8-7.8); Neutrophils % 71.6 % (37.0-80.0); Platelet Count 301 K/mm3 (142-424); Red Blood Count 4.59 M/mm3 (4.20-5.40); Red Cell Distribution Width 13.4 % (11.5-17.5); White Blood Count 5.3 K/mm3 (4.8-10.8)
[2023-08-19 19:19] LABS: Creatinine,Urine Random 192 mg/dL (Not Estab.)
[2023-08-19 19:20] LABS: Alanine Aminotransferase 18 U/L (12-78); Albumin Level 4.2 g/dl (3.5-5.0); Albumin/Globulin Ratio 1.8 (1.1-1.8); Alkaline Phosphatase 63 U/L (38-126); Anion Gap 10.4 mEq/L (5-15); Aspartate Amino Transferase 24 U/L (14-36); Bilirubin,Total 0.6 mg/dl (0.2-1.3); Blood Urea Nitrogen 16 mg/dl (7-17); Calcium 9.5 mg/dl (8.4-10.2); Carbon Dioxide 33 mmol/L (22.0-30.0); Chloride 102 mmol/L (98-107); Chol/HDL Ratio 4.3 (1-3.5); Cholesterol 269 mg/dl (140-200); Estimated Glomerular Filt Rate 70 ml/min (>60); GFR (African American) 85 ML/MIN (>60); Globulin 2.3 g/dL (1.3-3.2); Glucose 130 mg/dl (74-100); HDL Cholesterol 62 mg/dl (40-60); Potassium 4.4 mmoL/L (3.5-5.1); Sodium 141 mmol/L (136-145); Total Protein,Serum 6.5 g/dl (6.3-8.2); Triglycerides 129 mg/dl (30-150); VLDL Cholesterol 26 mg/dL (0-40)
[2023-08-19 19:23] LABS: Microalbumin/Creatinine Ratio 18.6
[2023-08-19 19:31] LABS: Direct LDL Cholesterol 142.78 mg/dL (100-129)
[2023-08-19 19:47] LABS: Hemoglobin A1C 5.4 % (4.0-6.0)
[2023-08-19 19:51] LABS: Thyroid Stimulating Hormone 1.56 uIU/mL (0.465-4.68)
== END ==
PROVIDERS: Nurse Practitioner; PCP Family Medicine; Visit Provider Family Medicine
DX: E78.5 Hyperlipidemia, unspecified (principal); F32.9 Major depressive disorder, single episode, unspecified; F41.8 Other specified anxiety disorders; F41.9 Anxiety disorder, unspecified; I10 Essential (primary) hypertension; R73.09 Other abnormal glucose; Z78.0 Asymptomatic menopausal state; R07.2 Precordial pain
CPT/HCPCS: 80053; 80061; 82043; 82570; 83036; 84443; 85025

== ENCOUNTER → 2023-09-14 14:01 | Outpatient (CLI) | payer MEDICARE, SELFPAY ==
--- NOTE | 2023-09-14 14:25 | XR_ITS ---
FINAL REPORT CLINICAL HISTORY: persistant cough COMPARISON: 10/27/2022 FINDINGS: 2 views of the chest were obtained . The heart is normal in size. The mediastinum is within normal limits. The lungs are clear. There is no pneumothorax. Osseous structures are unremarkable. IMPRESSION: No acute cardiopulmonary process. Reviewed, Interpreted and Dictated by Florinda Mcdermott MD Transcribed by Shanell Perales Authenticated and [facility]
--- NOTE | 2023-09-14 14:27 | ECG_ITS ---
APPROVED REPORT Exam: Resting ECG HR:106 bpm ECG Measurements Heart Rate 106 AXES AR 151 P 75 QRSd 93 QRS 50 QT 347 T 50 QTc 409 Conclusion SINUS TACHYCARDIA NONSPECIFIC ST & T-WAVE ABNORMALITY ABNORMAL RHYTHM ECG UNCONFIRMED REPORT Electronically signed by : Michael Montague MD 09/15/2023 18:26:14
== END ==
PROVIDERS: PCP Family Medicine; Visit Provider Family Medicine
DX: R05.3 Chronic cough (principal); Z01.810 Encounter for preprocedural cardiovascular examination
CPT/HCPCS: 71046; 93005

== ENCOUNTER 2023-12-21 18:51 | Outpatient (CLI) | payer MEDICARE, SELFPAY ==
[2023-12-21 19:05] LABS: Uric Acid 4.2 mg/dl (2.5-6.2)
[2023-12-21 19:54] LABS: Vitamin B12 967 pg/mL (239-931)
[2023-12-21 19:56] LABS: Erythrocyte Sedimentation Rate 11 mm/hr (0-30)
[2023-12-23 08:03] LABS: RA Latex Turbid. <10.0 IU/mL (<14.0)
[2023-12-29 23:22] LABS: Antinuclear Antibodies (ANA) Negative; Antinuclear Antibodies, IFA Positive
[2024-01-08 18:10] LABS: 1,25 Dihydroxy Vitamin D 64 pg/mL (.); 1,25-Dihydroxy, Vitamin D-2 <10 pg/mL (.); 1,25-Dihydroxy, Vitamin D-3 64 pg/mL (.)
== END 2023-12-21 23:59 ==
LOC: LAB.DROPOF 18:51
PROVIDERS: PCP Family Medicine; Visit Provider Family Medicine
DX: Z78.0 Asymptomatic menopausal state (principal); M25.50 Pain in unspecified joint; M84.375G Stress fracture, left foot, subsequent encounter for fracture with delayed healing; R79.89 Other specified abnormal findings of blood chemistry; R23.2 Flushing
CPT/HCPCS: 82607; 82652; 84550; 85651; 86038; 86225; 86235; 86431

== ENCOUNTER 2024-01-12 18:44 | Outpatient (CLI) | payer MEDICARE, SELFPAY ==
[2024-01-12 18:55] LABS: Chol/HDL Ratio 3.7 (1-3.5); Cholesterol 218 mg/dl (140-200); HDL Cholesterol 59 mg/dl (40-60); Triglycerides 88 mg/dl (30-150); VLDL Cholesterol 18 mg/dL (0-40)
[2024-01-12 19:07] LABS: Direct LDL Cholesterol 125.64 mg/dL (100-129)
== END 2024-01-12 23:59 ==
LOC: LAB.DROPOF 18:44
PROVIDERS: PCP Family Medicine; Visit Provider Family Medicine
DX: E78.5 Hyperlipidemia, unspecified (principal)
CPT/HCPCS: 80061

== ENCOUNTER 2024-03-21 16:11 | Outpatient (CLI) | payer MEDICARE, SELFPAY | END 2024-03-21 23:59 | disposition home or self-care (01) | LOC: LAB.DROPOF 03-22 16:13 | PROVIDERS: PCP Nurse Practitioner; Visit Provider Nurse Practitioner | DX: L03.031 Cellulitis of right toe (principal); B95.8 Unspecified staphylococcus as the cause of diseases classified elsewhere | CPT/HCPCS: 87070; 87077; 87186; 87205 ==

== ENCOUNTER 2024-03-30 08:01 | Outpatient (CLI) | payer MEDICARE, SELFPAY ==
--- NOTE | 2024-03-30 08:01 | US_ITS ---
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 There is a 4.6 cm ovoid solid mass in the subcutaneous soft tissues, favor lipoma. If symptoms worsen follow-up may help. No other focal masses are identified. IMPRESSION: Limited exam of the left periumbilical area reveals a 4.6 cm ovoid solid mass in the subcutaneous soft tissues, favor lipoma. Follow-up ultrasound may be helpful if symptoms worsen. Reviewed, Interpreted and Dictated by Johnnie Birmingham III, MD Transcribed by Soniya Pena Authenticated and [facility]
== END 2024-03-30 23:59 | disposition home or self-care (01) ==
LOC: RAD 08:01
PROVIDERS: PCP Nurse Practitioner; Visit Provider Nurse Practitioner
DX: D48.19 Other specified neoplasm of uncertain behavior of connective and other soft tissue (principal)
CPT/HCPCS: 76705

== ENCOUNTER 2024-06-13 12:55 | Outpatient (CLI) | payer MEDICARE, SELFPAY ==
[2024-06-13 23:30] LABS: Alanine Aminotransferase 37 U/L (12-78); Albumin Level 4.1 g/dl (3.5-5.0); Albumin/Globulin Ratio 1.6 (1.1-1.8); Alkaline Phosphatase 76 U/L (38-126); Anion Gap 10.3 mEq/L (5-15); Aspartate Amino Transferase 32 U/L (14-36); Bilirubin,Total 0.7 mg/dl (0.2-1.3); Blood Urea Nitrogen 15 mg/dl (7-17); Carbon Dioxide 29 mmol/L (22.0-30.0); Chloride 104 mmol/L (98-107); Chol/HDL Ratio 3.3 (1-3.5); Cholesterol 206 mg/dl (140-200); Estimated Glomerular Filt Rate 82 ml/min (>60); GFR (African American) 99 ML/MIN (>60); Globulin 2.5 g/dL (1.3-3.2); Glucose 97 mg/dl (74-100); HDL Cholesterol 62 mg/dl (40-60); Potassium 4.3 mmoL/L (3.5-5.1); Sodium 139 mmol/L (136-145); Total Protein,Serum 6.6 g/dl (6.3-8.2); Triglycerides 130 mg/dl (30-150); VLDL Cholesterol 26 mg/dL (0-40)
[2024-06-13 23:41] LABS: Direct LDL Cholesterol 99.39 mg/dL (100-129)
== END 2024-06-13 23:59 | disposition home or self-care (01) ==
LOC: LAB.DROPOF 06-14 13:49
PROVIDERS: PCP Family Medicine; Visit Provider Family Medicine
DX: E78.5 Hyperlipidemia, unspecified (principal)
CPT/HCPCS: 80053; 80061

== ENCOUNTER 2024-11-15 09:13 | Outpatient (CLI) | payer MEDICARE, SELFPAY ==
[2024-11-15 17:58] LABS: Basophils % 0.6 % (0.1-2.0); Eosinophils # 0.1 K/mm3 (0.0-0.4); Eosinophils % 2.7 % (0.1-12.0); Hemoglobin 12.6 g/dL (12.2-16.2); Lymphocytes # 0.9 K/mm3 (0.7-4.5); Lymphocytes % 18.1 % (10-50); Mean Corpuscular HGB Conc 32.3 g/dL (31.8-35.4); Mean Corpuscular Hemoglobin 30.2 pg (27.0-31.2); Mean Corpuscular Volume 93.5 fl (81-99); Mean Platelet Volume 10.9 fl (7.4-10.4); Monocytes # 0.5 K/mm3 (0.1-1.0); Monocytes % 9.4 % (1.7-9.3); Neutrophils # 3.5 K/mm3 (1.8-7.8); Neutrophils % 68.8 % (37.0-80.0); Platelet Count 281 K/mm3 (142-424); Red Blood Count 4.17 M/mm3 (4.20-5.40); Red Cell Distribution Width 12.9 % (11.5-17.5); White Blood Count 5.1 K/mm3 (4.8-10.8)
[2024-11-15 18:37] LABS: Alanine Aminotransferase 22 U/L (12-78); Albumin Level 4.1 g/dl (3.5-5.0); Albumin/Globulin Ratio 2.3 (1.1-1.8); Alkaline Phosphatase 71 U/L (38-126); Anion Gap 9.8 mEq/L (5-15); Aspartate Amino Transferase 24 U/L (14-36); Bilirubin,Total 0.4 mg/dl (0.2-1.3); Blood Urea Nitrogen 14 mg/dl (7-17); Calcium 9.5 mg/dl (8.4-10.2); Carbon Dioxide 30 mmol/L (22.0-30.0); Chloride 103 mmol/L (98-107); Chol/HDL Ratio 3.6 (1-3.5); Cholesterol 222 mg/dl (140-200); Estimated Glomerular Filt Rate 82 ml/min (>60); GFR (African American) 99 ML/MIN (>60); Globulin 1.8 g/dL (1.3-3.2); Glucose 76 mg/dl (74-100); HDL Cholesterol 61 mg/dl (40-60); Potassium 3.8 mmoL/L (3.5-5.1); Sodium 139 mmol/L (136-145); Total Protein,Serum 5.9 g/dl (6.3-8.2); Triglycerides 104 mg/dl (30-150); VLDL Cholesterol 21 mg/dL (0-40)
[2024-11-15 18:53] LABS: Direct LDL Cholesterol 131.26 mg/dL (100-129)
[2024-11-15 19:14] LABS: Thyroid Stimulating Hormone 1.13 uIU/mL (0.465-4.68)
== END 2024-11-15 23:59 | disposition home or self-care (01) ==
LOC: LAB.DROPOF 11-16 09:13
PROVIDERS: PCP Family Medicine; Visit Provider Family Medicine
DX: Z00.00 Encounter for general adult medical examination without abnormal findings (principal)
CPT/HCPCS: 80053; 80061; 84443; 85025

== ENCOUNTER 2025-03-04 10:34 | Emergency (ER) | payer MEDICARE, SELFPAY ==
[2025-03-04 11:18] VITALS: BP 112/71; PULSE 76; O2SAT 98
[2025-03-04 11:50] VITALS: BP 145/83; PULSE 76; RESP 20; TEMP 36.9; O2SAT 97; BMI 21.7
--- NOTE | 2025-03-04 12:31 | ED_ITS ---
<Statement entered by Sue Pugh MD - 03/04/25 16:03> I was consulted by the AWILDA, and we discussed the complexity of the problems being addressed. I approved the treatment and management plan for this patient's care in the emergency department, thus performing a substantive portion of the medical decision making. Sue Pugh MD, ANIRUDH, FACEP Discharge Plan Disposition Patient Disposition: Home, Self-Care Condition: Good Prescriptions Prescriptions: New cyclobenzaprine 10 mg tablet 10 mg PO BID PRN (Reason: muscle spasm) Qty: 20 0RF ketorolac 10 mg tablet 10 mg PO Q8H 5 Days Qty: 15 0RF No Action prednisone 20 mg tablet 20 mg PO BID 5 Days Qty: 10 0RF azithromycin 250 mg tablet See Rx Instructions PO .COMPLEX Qty: 6 0RF Rx Instructions: take 500 mg today (day 1), then 250 mg for 4 days (days 2-5) benzonatate 100 mg capsule 100 mg PO TID PRN (Reason: cough) Qty: 30 0RF mupirocin 2 % ointment 1 applic topical TID Qty: 15 0RF albuterol sulfate 90 mcg/actuation HFA aerosol inhaler 2 puff inhalation Q6H PRN (Reason: shortness of breath or wheezing) Qty: 8.5 1RF omeprazole 40 mg capsule,delayed release(DR/EC) See Rx Instructions .ROUTE .COMPLEX Qty: 90 5RF Dose Instruction: Take 1 Capsule by mouth once daily. Rx Instructions: Take 1 Capsule by mouth once daily. buspirone 15 mg tablet See Rx Instructions .ROUTE .COMPLEX Qty: 90 1RF Dose Instruction: Take 1 Tablet by mouth twice daily. Rx Instructions: Take 1 Tablet by mouth twice daily. duloxetine 30 mg capsule,delayed release(DR/EC) See Rx Instructions .ROUTE .COMPLEX Qty: 30 2RF Dose Instruction: Take 1 Capsule by mouth once daily for depression. Rx Instructions: Take 1 Capsule by mouth once daily for depression. alprazolam 0.25 mg tablet 0.25 mg PO TID Qty: 90 2RF bupropion HCl 300 mg tablet extended release 24 hr See Rx Instructions .ROUTE .COMPLEX Qty: 90 1RF Dose Instruction: Take 1 Tablet by mouth once daily. Rx Instructions: Take 1 Tablet by mouth once daily. quetiapine 25 mg tablet See Rx Instructions .ROUTE .COMPLEX Qty: 30 2RF Dose Instruction: Take 1 Tablet by mouth once daily. Rx Instructions: Take 1 Tablet by mouth once daily. bisoprolol fumarate 5 mg tablet See Rx Instructions .ROUTE .COMPLEX Qty: 60 3RF Dose Instruction: Take 1 Tablet by mouth twice daily for blood pressure. Rx Instructions: Take 1 Tablet by mouth twice daily for blood pressure. dextroamphetamine-amphetamine 25 mg capsule,extended release 24hr 25 mg PO DAILY Qty: 30 0RF Referrals Follow up/Referrals: Karri Newby MD [Primary Care Provider] - See instructions Clinical Impressions Clinical Impression: Strain of lumbar region, Bilateral hip pain Instructions Patient Instructions: DI for Low Back Pain Print Language Print Language: Luxembourgish Discharge ED Provider: Sue Pugh General Adult HPI General Chief complaint: Back Pain/Injury Stated complaint: AO-03/01/25 Fall, back pain Time Seen by Provider: 03/04/25 12:01 Mode of Arrival: Ambulatory Source of Information: Patient Description of Symptoms (Recalled from ER Triage Doc. by RN): pt slipped and fell on and has had low back pain since then, ambulatory and no problems with bowel mvmt or urinary History of Present Illness HPI narrative: 74-year-old female presents to the ED today for complaint of slipping on the tile in her house and landing on her buttocks on . She says she is had some low back pain since then. She is now starting to hurt in her pelvis. She is able to walk but with pain. She states that it is painful to lift her right leg the most. She has pain with sitting and walking. Painful movements getting up and down. She has no loss of bowel or bladder. No saddle anesthesias. No incontinence. No other signs or symptoms at this time. Related Data Previous Rx's ?Medication ?Instructions ?Recorded mupirocin 2 % topical ointment 1 applic topical TID #15 grams 03/21/24 albuterol sulfate 90 mcg/actuation 2 puff inhalation Q6H PRN 04/04/24 aerosol inhaler shortness of breath or wheezing #8.5 grams omeprazole 40 mg capsule,delayed See Rx Instructions .Route 09/15/24 release .COMPLEX #90 caps buspirone 15 mg tablet See Rx Instructions .Route 11/24/24 .COMPLEX #90 tabs duloxetine 30 mg capsule,delayed See Rx Instructions .Route 12/05/24 release .COMPLEX #30 caps alprazolam 0.25 mg tablet 0.25 mg PO TID anxiety #90 tabs 12/13/24 azithromycin 250 mg tablet See Rx Instructions PO .COMPLEX #6 12/21/24 tabs benzonatate 100 mg capsule 100 mg PO TID PRN cough #30 caps 12/21/24 prednisone 20 mg tablet 20 mg PO BID 5 days #10 tabs 12/21/24 bupropion HCl 300 mg 24 hr tablet, See Rx Instructions .Route 01/31/25 extended release .COMPLEX #90 tabs quetiapine 25 mg tablet See Rx Instructions .Route 01/31/25 .COMPLEX #30 tabs bisoprolol fumarate 5 mg tablet See Rx Instructions .Route 02/26/25 .COMPLEX #60 tabs dextroamphetamine-amphetamine ER 25 mg PO DAILY #30 caps 03/01/25 25 mg 24hr capsule,extend release cyclobenzaprine 10 mg tablet 10 mg PO BID PRN muscle spasm #20 03/04/25 tabs ketorolac 10 mg tablet 10 mg PO Q8H 5 days #15 tabs 03/04/25 Allergies Allergy/AdvReac Type Severity Reaction Status Date / Time No Known Allergies Allergy Verified 12/21/24 11:48 [facility] Disclaimer: The information contained in this section may have been updated after the patient was seen, as this information can be updated by other users. 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 Paronychia of great toe of right foot Positive JIN (antinuclear antibody) Hot flashes Polyarthralgia History of breast cancer Preop cardiovascular exam Stress fracture, left foot, subsequent encounter for fracture with delayed healing Persistent cough Postmenopausal Snoring Herpes zoster Irritation of oral cavity Insomnia Allergic rhinitis Acute adenoviral follicular conjunctivitis Primary hypertension PTSD (post-traumatic stress disorder) Hyperkalemia Persistent cough Bronchitis Influenza A Hypertension Dyslipidemia Primary insomnia Strep throat Anxiety Sinusitis Palpitation Chest pain Surgical History History of tonsillectomy History of hysterectomy Family History Other Family history non-contributory Social History (Updated 12/21/24 @ 11:48 by Cesilia Hewitt MA) Smoking Status: Never smoker alcohol intake: never substance use type: denies use current occupational status: retired Travel in the last 8 weeks?: None household members: significant other housing: house current occupational exposures/hazards: No caffeine: Yes Have you lived/traveled outside US in past 30 days?: No Contact w/someone who lives/traveled outside US past 30 days?: No Exposure to someone with infectious disease in past 14 days?: No Do you have a fever (greater than 100.4 F or 38 C)?: No Have you tested positive for COVID-19?: No Exposed to someone with COVID-19 in past 14 days?: No Do you have a sore throat?: No Do you have a cough?: No Do you have any weakness?: No Do you have any diarrhea?: No Are you experiencing any unusual bleeding?: No Do you have any muscle aches/pain?: No Do you have any abdominal pain?: No Are you experiencing loss of taste or smell?: No Other Medical History Have you received the Flu Vaccine for this season: Yes Have you received the Pneumonia Vaccine: Yes ROS Obtained: Yes Systems reviewed as appropriate & no additional complaints except as documented Constitutional Constitutional: Reports as per HPI Physical Exam General General appearance: alert and in distress Head Head exam: atraumatic and normocephalic Eye Eye exam: Present normal appearance, PERRL and EOMI ENT ENT exam: Present normal oropharynx and mucous membranes moist Neck Neck exam: Present full ROM and trachea midline Respiratory Respiratory exam: Present normal lung sounds bilaterally Cardiovascular Cardiovascular exam: Present regular rate, normal rhythm, normal heart sounds, +S1 and +S2 Extremities Exam Extremities exam: Present normal capillary refill Back Exam Back exam: Present normal inspection, tenderness, paraspinal tenderness and straight leg raise (R) Neurological Exam Neurological exam: Present alert and oriented X3 Skin Skin exam: Present warm, dry and intact Medical Decision Making Medical Records Medical records reviewed: Yes I reviewed the patient's medical records. Screening: Per USPSTF and CDC recommendations, given the prevalence of disease in our region, it is our hospital?s policy to screen for HIV and viral Hepatitis for all patients aged 18 and over and those with ongoing risk factors. Doug Inquiry Pt receiving controlled substance: No Doug was queried for this patient: No Vital Signs: 05/18/25 11:18 03/04/25 11:50 03/04/25 14:36 Temperature 98.5 F 98.2 F Temperature Source Oral Pulse Rate 76 80 Pulse Rate [Left Radial] 76 Respiratory Rate 20 20 Blood Pressure 112/71 140/74 Blood Pressure [Right Arm] 145/83 H Blood Pressure Mean [Right Arm] 103 Blood Pressure Source Automatic Cuff 02 Sat by Pulse Oximetry 98 97 Oxygen Delivery Method Room Air Room Air Room Air Lab Data Lab Results 03/04/25 12:20: SARS-CoV-2 (PCR) Not detected, Influenza Type A (PCR) Not detected, Influenza Type B (PCR) Not detected, RSV (PCR) Not detected, Rhinovirus (PCR) Not detected Orders (Tests/Meds): ED MEDICATIONS Discontinued Medications Generic Name Dose Route Start Last Admin Trade Name Freq PRN Reason Stop Dose Admin Ketorolac Tromethamine 30 mg 03/04/25 12:34 03/04/25 12:37 Ketorolac 30mg/Ml Vial IV 03/04/25 12:35 30 mg ONCE ONE Administration Orphenadrine Citrate 30 mg 03/04/25 12:34 03/04/25 12:37 Orphenadrine Citrate 60mg/2ml Vial IV 03/04/25 12:35 30 mg ONCE ONE Administration ORDERS Category Date Time Status CT lumbar spine wo con Stat Cat Scan 03/04/25 12:[address] pelvis wo con Stat Cat Scan 03/04/25 12:38 Completed Mini Respiratory Panel Stat Lab 03/04/25 12:20 Completed Medical Decision Narrative: patient is a 74-year-old female presenting to the emergency department for evaluation of low back pain. Patient is hemodynamically stable and nontoxic- appearing upon arrival, afebrile. Differential diagnosis includeslow back spasm, pelvic fx, vertebral fracture. Workup will be conducted with CT scan of lumbar and pelvic. Initial inventions include analgesic. Please see radiology reports for formal imaging. Upon repeat evaluation patient's pain is improved after the Norflex and Toradol were given. Patient is safe for discharge home. Critical Care Critical Care Time Critical Care Time: No
[2025-03-04 12:34] LABS: Coronavirus 19, PCR Not Detected (NotDetected); Human Rhinovirus Not Detected (NotDetected); Influenza A, PCR Not Detected (NotDetected); Influenza B, PCR Not Detected (NotDetected); Respiratory Syncytial Virus Not Detected (NotDetected)
[2025-03-04] MEDS: ORPHENADRINE CITRATE 60MG/2ML VIAL 30 MG IV (12:37)
[2025-03-04] MEDS: KETOROLAC 30MG/ML VIAL 30 MG IV (12:37)
--- NOTE | 2025-03-04 12:38 | CT_ITS ---
PROCEDURE INFORMATION: Exam: CT Lumbar Spine Without Contrast Exam date and time: 03/04/2025 1:04 PM Age: 74 years old Clinical indication: Injury or trauma; Fall; Blunt trauma (contusions or hematomas) TECHNIQUE: Imaging protocol: Computed tomography of the lumbar spine without contrast. Radiation optimization: All CT scans at this facility use at least one of these dose optimization techniques: automated exposure control; mA and/or kV adjustment per patient size (includes targeted exams where dose is matched to clinical indication); or iterative reconstruction. COMPARISON: US SOFT TISSUE - ABD 03/30/2024 8:30 AM FINDINGS: Bones/joints: Mild degenerative disc disease reflected as a decrease in disc space height and anterior endplate osteophytosis. No spondylolisthesis. No pars defect. No fracture. Mild degenerative listhesis of L4 with respect to L5 of approximately 2-3 mm . Small focus of bony sclerosis right iliac bone adjacent to the sacroiliac joint. Probable mild to moderate central canal narrowing L4-L5. Vasculature: Dense vascular calcifications Soft tissues: Unremarkable. IMPRESSION: No fracture. 1. Mild degenerative disc disease reflected as a decrease in disc space height and anterior endplate osteophytosis. 2. No fracture. 3. Mild degenerative listhesis of L4 with respect to L5 of approximately 2-3 mm . 4. Probable mild to moderate central canal narrowing L4-L5.
--- NOTE | 2025-03-04 12:38 | CT_ITS ---
PROCEDURE INFORMATION: Exam: CT Pelvis Without Contrast, Skeleton Exam date and time: 03/04/2025 1:06 PM Age: 74 years old Clinical indication: Injury or trauma; Fall; Blunt trauma (contusions or hematomas); Bilateral; Pelvic region; Additional info: Pain fall TECHNIQUE: Imaging protocol: Computed tomography of the pelvis without contrast. Exam focused on the skeleton. Radiation optimization: All CT scans at this facility use at least one of these dose optimization techniques: automated exposure control; mA and/or kV adjustment per patient size (includes targeted exams where dose is matched to clinical indication); or iterative reconstruction. COMPARISON: CT LUMBAR SPINE WO CON 03/04/2025 1:04 PM FINDINGS: Appendix: Suspected prior appendectomy Intraperitoneal space: No free fluid within the pelvis or within the dependent portions of the peritoneum. Vasculature: Dense vascular calcifications Reproductive: Prior hysterectomy. Bones/joints: osseous structures of the pelvis without an acute process. rami are intact. Sacroiliac joints without separation/diastases/fracture. Iliac bones unremarkable/noncontributory. Degenerative changes within the visualized portions of the caudal aspect of the lumbar spine. Focus of bony sclerosis within the right iliac bone posteriorly. Mild degenerative changes about the symphysis. Bony sclerosis within the superior pubic ramus on the right adjacent to the symphysis. Small focus of bony sclerosis within the left femoral head Soft tissues: Unremarkable. Other findings: Scattered diverticula IMPRESSION: No acute process. No fracture.
[2025-03-04 14:36] VITALS: BP 140/74; PULSE 80; RESP 20; TEMP 36.8; O2SAT 98
== END 2025-03-04 14:38 | disposition home or self-care (01) ==
PROVIDERS: Nurse Practitioner; Emergency Provider Student in an Organized Health Care Education/Training Program; PCP Family Medicine
DX: S39.012A Strain of muscle, fascia and tendon of lower back, initial encounter (principal); M25.551 Pain in right hip; M25.552 Pain in left hip; W01.10XA Fall on same level from slipping, tripping and stumbling with subsequent striking against unspecified object, initial encounter
CPT/HCPCS: 72131; 72192; 87631; 96374; 96375; 99285; J1885; J2360

== ENCOUNTER 2025-08-22 09:41 | Outpatient (CLI) | payer MEDICARE, SELFPAY ==
[2025-08-22 19:19] LABS: 25-OH Vitamin D, Total 26.6 ng/mL (30-100)
[2025-08-22 21:25] LABS: Vitamin B12 877 pg/mL (239-931)
--- OUTSIDE RECORDS SUMMARY | 2025-08-24 09:44 | XMS_ITS | Clinical Summary ---
Author Organization [facility] Address [address] [place] [id number] Care Team Providers Care Unclaimed Property Officer Name Role Phone Newton Fernandes MD Primary Care Provider [phone] Source Comments This information has been disclosed to you from confidential records protectedfrom disclosure by state law. You shall make no further disclosure of thisinformation without the specific, written, and informed release of theindividual to whom it pertains, or as otherwise permitted by law. A generalauthorization for the release of medical or other information is not sufficientfor the purposes of therelease of HIV test results or diagnoses. [id number] Allergies No known active allergies Medications venlafaxine (EFFEXOR-XR) 75 MG 24 hr capsule 6 Active zolpidem (AMBIEN) 10 mg tablet 6 Active ziprasidone (GEODON) 40 MG capsule 6 Active tretinoin (ALTRALIN) 0.05 % gel Apply topically at bedtime. 45 g 3 6 Active terbinafine HCl (LAMISIL) 250 mg tabletIndicati ons:chromoblas tomycosis Take 1 tablet (250 mg total) by mouth daily. 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 Problems Problem Noted Date Diagnosed Date Tinea unguium 12/05/2015 Verruca plantaris 12/05/2015 Family History Medical History Relation Comments Allergy (severe) Neg Hx Eczema Neg Hx Melanoma Neg Hx Psoriasis Neg Hx Social History Tobacco Use Types Packs/Day Years Used Date Smoking Tobacco: Never Alcohol Use Standard Drinks/Week Comments Yes 0 (1 standard drink = 0.6 oz pur e alcohol) Comments Unknown Sex and Gender Information Value Date Recorded Sex Assigned at Not on file Legal Sex Female 7:20 PM EST Gender Identity Not on file Sexual Orientation Not on file Plan of Treatment Not on file Insurance [employer] P[employer] MEDICARE Care Teams Unclaimed Property Officer Relationship Specialty Start Date End Date Newton Fernandes MD [facility] [place] [address] PCP - General Family Medicine 12/05/15
--- OUTSIDE RECORDS SUMMARY | 2025-08-24 09:44 | XMS_ITS | Clinical Summary ---
Author Organization [facility] Address [address] [facility] [address] [place] [address] Care Team Providers Care Rn Charge Name Role Phone Niya Tolliver MD Unavailable [phone] Catherine Black MD Unavailable [phone] Karri Newby MD Primary Care Provider [phone] Allergies No known active allergies Medications bisoprolol (ZEBETA) 5 mg Oral Tablet 5 mg daily. 3 Active ALPRAZolam (XANAX) 0.25 mg Oral Tablet TAKE 1 TABLET BY MOUTH 3 TIMES A DAY FOR DEPRESSION 3 Active dextroamphetamin e-amphetamine (ADDERALL XR) 25 mg Oral Capsule, Sust. Release 24 hr Take 25 mg by mouth daily. Active buPROPion (WELLBUTRIN XL) 300 mg Oral Tablet Sustained Release 24 hr Take 300 mg by mouth daily. Active rosuvastatin (CRESTOR) 10 mg Oral Tablet Take 10 mg by mouth daily. 4 Active ibandronate (BONIVA) 150 mg Oral TabletIndication s:Age-related osteoporosis without current pathological fracture Take 1 Tablet by mouth every 30 days. 3 Tablet 3 4 Active Additional Information Patient not taking.Reason: Pt electing to not take the medication, Informant: Self/Patient, Reported on 10/09/2024 omeprazole (PRILOSEC) 40 mg Oral Capsule, Delayed Release(E.C.) Take 40 mg by mouth daily. 4 Active DULoxetine (CYMBALTA) 30 mg Oral Capsule, Delayed Release(E.C.) Take 30 mg by mouth every morning. Active QUEtiapine (SEROQUEL) 25 mg Oral Tablet Take 25 mg by mouth nightly. Active busPIRone (BUSPAR) 15 mg Oral Tablet Take 15 mg by mouth 2 times daily. Active biotin 5,000 mcg Oral Tablet, Chewable Take by mouth daily. Active ELDERBERRY FRUIT ORAL Take 2 Tablets by mouth daily. Active cyanocobalamin 500 mcg Oral Tablet Take 1,000 mcg by mouth daily. Active oxyCODONE (ROXICODONE) 5 mg Oral Tablet Take 1 Tablet by mouth every 4 hours as needed for Major Surgery/Trauma (G89.18) for up to 10 doses. 10 Tablet 5 Active Active Problems Problem Noted Date Diagnosed Date Trigger middle finger of right hand 08/22/2024 Menopausal and female climacteric states 024 Overview (05/17/2024): History of breast cancer Assessment & Plan (05/17/2024 2:09 PM EDT): The patient has had symptoms of estrogen deficiency. The nature of menopause was discussed with the patient at length. Different aspects of estrogen replacement therapy were reviewed with the patient. She is not a candidate for ERT trial due to history of breast cancer The patient was consulted on different OTC options with help with vasomotor symptoms. She is to try magnesium oxide. Will consider Veozah trial if she continues to have persistent disrupting vasomotor symptoms. Vitamin D deficiency 05/17/2024 Assessment & Plan (05/17/2024 2:10 PM EDT): Will measure vitamin D level Age-related osteoporosis wit hout current pathological fracture 02/15/2024 Assessment & Plan (05/17/2024 2:08 PM EDT): The patient has history of osteoporosis based on DEXA results. Bone density results were reviewed with the patient in detail. She would benefit from pharmacological intervention to reduce the risk of fracture. She would be a good candidate for ibandronate. 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 S/P re-excision on 05/09/14 with negative margins. S/P radiation to 52.56 Gy completed on 07/12/14. Assessment & Plan (08/20/2014 3:24 PM EST): Tolerated radiation extremely well. RTC in 6 months. Will need 6 month imaging. She does not want to take Tamoxifen. Surgical History Surgery Date Site/Laterality Comments HYSTERECTOMY 10/18/1981 partial OTHER SURGICAL HISTORY 10/18/1979 right arm fracture COLONOSCOPY 06/19/2008 f/u 10 years FINGER SURGERY 12/15/2012 Right finger joint fusion right middle BREAST CYST EXCISION 07/18/2013 Left URETER SURGERY 10/18/2006 uretral repair BREAST LUMPECTOMY 04/18/2014 Left LEFT BREAST MAMMOGRAM NEEDLE LOCALIZATION SEGMENTECTOMY ; Surgeon: Gilmer Torrez MD; Location: [facility]; Service: General FINGER SURGERY 09/06/2013 Left left thumb BREAST BIOPSY 05/09/2014 Breast/Left LEFT BREAST RE-EXCISION ; Surgeon: Gilmer Torrez MD; Location: [facility]; Service: General ANKLE FRACTURE SURGERY Left FOOT FRACTURE SURGERY 09/21/2023 Foot/Ankle/Left Left foot second metatarsal open reduction internal fixation and repair non union; Surgeon: Tyrone Guevara MD; Location: [facility] [place]; Service: Orthopedics Medical devices from this surgery are in the Medical Devices section. OVARY REMOVAL Left TONSILLECTOMY AND ADENOIDECTOMY as a child TUBAL LIGATION FINGER SURGERY 10/31/2024 Hand/Wrist/Right right ring finger distal intraphalangeal joint fusion right middle finger trigger finger release; Surgeon: Blas Rodrigez MD; Location: [facility]; Service: Hand Medical devices from this surgery are in the Medical Devices section. FINGER TRIGGER RELEASE 10/31/2024 Hand/Wrist/Right Surgeon: Blas Rodrigez MD; Location: [facility]; Service: Hand Medical devices from this surgery are in the Medical Devices section. Medical History Medical History Date Comments Depression Arthritis Anxiety attack Osteoarthritis Breast cancer (HCC) 03/18/2014 Lt DCIS; low grade; er/pr positive; dx in [place], [place], had lumpectomy and radiation Anesthesia complication after osorio rgery 04/18/2014 had to be given a BP medication in recovery room Hypertension Attention-deficit hyperactiv ity disorder Hyperlipidemia Osteoporosis Family History Medical History Relation Name Comments Alcohol Abuse Brother Breast Cancer Daughter 1 Laurie Sharp Depression Father committed suici de Early Father suicide Father Early Mother Other Mother MS Arthritis Son Anesth Problems Neg Hx Relation Name Status Comments Brother Daughter 1 Laurie Sharp Alive Daughter 2 Alive Father Mother Son Alive Social History Tobacco Use Types Packs/Day Years Used Date Smoking Tobacco: Never Passive Smoke Exposure: Past Smokeless Tobacco: Never Tobacco Cessation:Counseling Given: Not Answered Alcohol Use Standard Drinks/Week Comments Yes 0 (1 standard drink = 0.6 oz pur e alcohol) socially Comments No Sex and Gender Information Value Date Recorded Sex Assigned at Not on file Legal Sex Female 8:43 PM EDT Gender Identity Not on file Sexual Orientation Not on file Obstetrics History Para Term AB IAB SAB Ectopic Multiple Livin g Live Births 3 Last Filed Vital Signs Vital Sign Reading Time Taken Comments Blood Pressure 136/78 10/31/2024 2:03 PM EST Pulse 80 10/31/2024 2:03 PM EST Temperature 36.8 C (98.2 F) 10/31/2024 1:50 PM EST Respiratory Rate 16 10/31/2024 2:03 PM EST Oxygen Saturation 97% 10/31/2024 2:03 PM EST Inhaled Oxygen Concentration - - Weight 61.7 kg (136 lb) 03/20/2025 10:06 AM EDT Height 167.6 cm (5' 6 ) 10/31/2024 11:32 AM EST Body Mass Index 21.95 10/31/2024 11:32 AM EST Plan of Treatment Health Maintenance Due Date Last Done Comments Wellness Exam Medicare 1953 Hepatitis C Screening 1967 Cologuard 1994 FIT 1994 Sigmoidoscopy 1994 Virtual Colonography 1994 Colon Cancer Screening 06/19/2018 Colonoscopy 06/19/2018 06/19/2008 (Not Entered) RSV or 60+ (1 - 1-dose 75+ series) 2024 COVID-19 Vaccine ( season) 2025 10/25/2022, 09/01/2021, 12/17/2020, Additional history exists Influenza Vaccine (#1) 2025 , 08/17/2023, 07/29/2022, Additional history exists DTaP/TDaP/Td (4 - Td or Tdap) 08/19/2028 08/19/2018, 01/06/2018, 12/24/2015, Additional history exists Pneumococcal Vaccine 50+ Completed 022, 03/14/2020, 01/06/2018 Zoster Completed 07/01/2023, 02/23/2023 Bone Density Screening Completed 03/20/2024, 2019 Hepatitis B Vaccine Aged Out No longe r eligible based on patient's age to complete this topic Meningococcal B Vaccine Aged Out No l onger eligible based on patient's age to complete this topic Medical Devices Implanted Type Area Patient Ambassador Device Identifier Shelf Expiration Date Model / Serial / Lot Hardware In Lt Ankle 6 Porcelain Teeth Implanted:(Jean kate not on file) Screw Atk2 Micro 20mm - [id number] Implanted:Qty: 1 on 12/15/2012 by Blas Rodrigez MD at [facility] Right: Finger ACUMED 11/18/2018 AT2-C20-S / / [id number] K-Wire And Guide.062 1600-023 - [id number] Implanted:Qty: 1 on 09/06/2013 by Zahira Seals, RN at [facility] Left: Finger MICROAIRE SURG INSTR 08/18/2016 1600-023 / / [id number] Plate 2.0mm Straight 6 Hole - [id number] Implanted:Qty: 1 on 09/21/2023 by Tyrone Guevara MD at [facility] Left: Foot ARTHREX [id number] -03 / / Paste Bone Graft Allograft Allosync Cb 1ml Cancellous Dbm - [id number] Implanted:Qty: 1 on 09/21/2023 by Tyrone Guevara MD at [facility] ARTHREX [id number] 12/15/2024- / [id number] / [id number] Stuart Plate Bb Bertrand Small Disposable - [id number] Implanted:Qty: 1 on 09/21/2023 by Tyrone Guevara MD at [facility] Left: Foot ARTHREX [id number] 34 / / Plate 2.0mm Straight 6 Hole - [id number] Implanted:Qty: 1 on 09/21/2023 by Tyrone Guevara MD at [facility] Left: Foot ARTHREX [id number] -03 / / Screw Bone 2mm 22mm Low-Profile Cortical Titanium - [id number] Implanted:Qty: 2 on 09/21/2023 by Tyrone Guevara MD at [facility] Left: Foot ARTHREX AR-[id number]- 22 / / Screw Safia Titanium 2.0mm X 12mm - [id number] Implanted:Qty: 1 on 09/21/2023 by Tyrone Guevara MD at [facility] Left: Foot ARTHREX [id number] -12 / / Screw Safia Titanium 2.0mm X 13mm - [id number] Implanted:Qty: 1 on 09/21/2023 by Tyrone Guevara MD at [facility] Left: Foot ARTHREX [id number] -13 / / Screw Bone Arthrodesis Titanium 2.5mm X 26mm - [id number] Implanted:Qty: 1 on 10/31/2024 by Blas Rodrigez MD at [facility] Right: Hand SKELETAL DYNAMICS [id number] / / Procedures Procedure Name Priority Date/Time Associated Diagnosis Comments DX BONE DENSITY AXIAL SKELETON Routine 03/20/2024 1:02 PM EDT Postmenopausal Osteoporosis, unspecified osteoporosis type, unspecified pathological fracture presence from Last 3 Months or Most Recently Relevant to Health Maintenance Results * DX BONE DENSITY AXIAL SKELETON (03/20/2024 1:02 PM EDT) Anatomical Region Laterality Modality Dexa Scan 03/20/2024 Impressions 03/21/2024 3:46 PM EDT Indication: The patient is a female age 65 or older who requires a bone density assessment. Study was performed on [employer] retargeting. Bone Density: Region BMD T-score Z-score AP Spine (L3, L4) 0.833 -2.4 0.1 Femoral Neck (Right) 0.551 -2.7 -0.6 Total Hip (Right) 0.759 -1.5 0.2 1/3 Radius (Left) 0.596 -1.6 0.9 World Health Organization criteria for BMD interpretation classify patients as: Normal (T-score at or above -1.0), Low Bone Density (T-score between -1.0 and -2.5), or Osteoporotic (T-score at or below -2.5). T Scores are reported in Postmenopausal women and in men age 50 and older. Z-scores are reported in females prior to menopause and in males younger than age 50. 10-year Fracture Risk: FRAX not reported because: Some T-score for Spine Total or Hip Total or Femoral Neck at or below -2.5 Previous Exams: Region Date Age BMD T-score BMD Change AP Spine(L3, L4) 03/20/2024 73 0.833 -2.4 -3.6% 08/14/2020 69 0.865 -2.1 Total Hip(Right) 03/20/2024 73 0.759 -1.5 1.1% 08/14/2020 69 0.751 -1.6 1/3 Forearm(Left) 03/20/2024 73 0.596 -1.6 -3.6% 08/14/2020 69 0.618 -1.3 *Denotes significance at 95% confidence level, LSC for AP Spine = 0.032g/cm2, LSC for Total Hip = 0.024 g/cm2, LSC for Distal 1/3 Radius = 0.026 g/cm2, site specific LSC for AP Spine = 0.032 g/cm2, site specific LSC for Total Hip = 0.022 g/cm2, site specific LSC for 1/3 Forearm = 0.026 g/cm2 BMD is shown in g/cm2 and BMD Change indicates change vs previous BMD Clinical Information Provided by Patient: Has had a low trauma fracture Has had or currently has the following medical conditions: Back pain, Hip pain, Depression Patient maximum height was 66 Menopause Age: 31 Patient is postmenopause Interpretation: Bone mineral density is in the osteoporotic range. The spine portion of the study is limited by visual hypertrophic change with associated vertebra deleted. The spine bone mineral density is not significantly changed since the last exam. The right hip bone mineral density is not significantly changed since the last exam. Although not approved for monitoring therapy the forearm bone mineral density is not significantly changed since the last exam. A minimum of two years may be required between bone density studies due to inherent testing precision limitations. Intervals between BMD testing should be determined according to each patient's clinical status: typically one year after initiation or change of therapy is appropriate, with longer intervals once therapeutic effect is established. Reported by: Jessenia Lock PA-C, CCD on 03/21/2024 11:54:00 AM. Peggy Cole APRN IMG DEXA ORDERABLES Final Resu lt from Last 3 Months or Most Recently Relevant to Health Maintenance Insurance [id number] [id number] [facility] MEDICARE PPO MR [employer] MEDICARE PPO MR Care Teams Rn Charge Relationship Specialty Start Date End Date Karri Newby MD [address] [place] [address] PCP - General Family Medicine 03/06/25 Niya Tolliver MD [address] [place] [address] [place] [id number] Consulting Physician Radiology-Radiation Oncology 02/18/15 Catherine Black MD [address] [place] [address] Internal Medicine-Endocrinology, Diabetes & Metabolism 05/17/24
--- OUTSIDE RECORDS SUMMARY | 2025-08-24 09:44 | XMS_ITS | Encounter Summary ---
Author Organization [facility] Address [address] [place] [id number] Care Team Providers Care Unscrambler Name Role Phone Newton Fernandes MD Primary Care Provider [phone] Source Comments This information has been disclosed to you from confidential records protectfrom disclosure by state law. You shall make no further disclosure of thisinformation without the specific, written, and informed release of theindividual to whom it pertains, or as otherwise permitted by law. A generalauthorization for the release of medical or other information is not sufficientfor the purposes of the release of HIV test results or diagnoses. [id number] Health Encounter Details Date Type Department Care Team (Late st Contact Info) Description 12/05/2015 Orders Only [facility] Outreach Lab Test Referral Center [address] [place] [phone] Isidro Thompson Tinea unguium (Primary Dx) Social History Tobacco Use Types Packs/Day Years Used Date Smoking Tobacco: Never Alcohol Use Standard Drinks/Week Comments Yes 0 (1 standard drink = 0.6 oz pur e alcohol) Comments Unknown Sex and Gender Information Value Date Recorded Sex Assigned at Not on file Legal Sex Female 7:20 PM EST Gender Identity Not on file Sexual Orientation Not on file documented as of this encounter Plan of Treatment Not on file documented as of this encounter Results * Fungus Culture, Dermatophyte with SISI (12/05/2015 1:33 PM EST) SISI Prep SISI -- No Fungal Elements Seen; [facility] Culture Result Scant Growth [facility] Culture Result Graciela parapsilosis [facility] Culture Result No Further Workup [facility] Nail specimen (specimen) NAIL SPECIMEN / Unknown 12/05/2015 1:33 PM EST 12/05/2015 8:23 PM EST Violet Chase MD MICROBIOLOGY - GENERAL ORDERA BLES Final Result Performing Organization Address City/State/[facility] Co de Phone Number [facility] [address] documented in this encounter Visit Diagnoses Diagnosis Tinea unguium- Primary Dermatophytosis of nail documented in this encounter Care Teams Unscrambler Relationship Specialty Start Date End Date Newton Fernandes MD [address] [place] [address] [place] [address] PCP - General Family Medicine 12/05/15 documented as of this encounter
== END 2025-08-22 23:59 ==
LOC: LAB.DROPOF 08-24 09:41
PROVIDERS: PCP Family Medicine; Visit Provider Family Medicine
DX: K12.0 Recurrent oral aphthae (principal)
CPT/HCPCS: 82306; 82607